=== PATIENT | male | born 1955 | race African-American/Black ===

== ENCOUNTER 2019-09-10 20:34 | Inpatient (IN) | payer MEDICARE, MEDICAID ==
[~2019-09-10] VITALS: Ht 198.1 cm; Wt 87.1 kg
--- NOTE | 2019-09-10 21:45 | NUR ---
PT GIVEN BLANKETS, DENIES ANY FURTHER NEEDS AT THIS TIME. WILL CONTINUE TO MONITOR.
[2019-09-10 22:00] VITALS: BP 179/125
[2019-09-10 22:31] VITALS: BP 161/11
--- NOTE | 2019-09-10 23:17 | NUR ---
RECEIVED PT ON STRETCHER FROM ED RN. PT ALERT AND ORIENTED. PT AMBULATED FROM STRETCHER TO BED WITH MIN ASSISTANCE. NSR ON MONITOR, RATE OF 70'S. L AC PIV SALINE LOCKED, PATENT. R AC PIV PATENT, NITRO GTT INFUSING. ALL PULSES PALP. CALL LIGHT IN REACH. WILL MONITOR.
[2019-09-10 23:20] VITALS: BP 168/120
[2019-09-10 23:30] VITALS: BP 158/117
--- NOTE | 2019-09-10 23:30 | NUR ---
NITRO GTT TITRATED ACCORDING TO MAR.
[2019-09-10 23:45] VITALS: BP 157/115
[2019-09-11] VITALS (38 sets, daily range): BP systolic 116–171; BP diastolic 82–120; Ht 198.1 cm; Wt 87.1 kg
--- NOTE | 2019-09-11 01:45 | NUR ---
DR ANGULO UPDATED, NEW ORDERS RECEIVED.
--- NOTE | 2019-09-11 03:00 | NUR ---
REASSESSMENT COMPLETE, SEE FLOWSHEET.
--- NOTE | 2019-09-11 04:45 | NUR ---
SPOKE WITH DR ANGULO, UPDATE GIVEN AND NEW ORDERS RECEIVED. NEW ORDER TO CHANGE CARDENE DOSE TO 2.5 AND GIVE 0900 HYDRALAZINE EARLY AT 0600. ONCE HYDRALAZINE IS GIVEN TURN CARDENE GTT OFF.
[2019-09-11 05:55] LABS: BASOPHILS 0.3 % (0-2); EOSINOPHILS 2.2 % (0-7); HEMOGLOBIN 10.2 g/dL (13.5-17.5); LYMPHOCYTES 26.6 % (15-50); MCH 28.9 pg (26.0-34.0); MCHC 31.9 g/dL (31.0-37.0); MCV 90.7 fL (80.0-100.0); MEAN PLATELET VOLUME 10.9 fL (7.4-10.4); MONOCYTES 13.3 % (2-11); NEUTROPHILS 57.6 % (40-80); PLATELET COUNT 131 10x3/uL (130-400); RBC 3.53 10x6/uL (4.20-6.10); RDW 14.2 % (11.5-14.5); WBC 3.7 10x3/uL (4.8-10.8)
[2019-09-11 06:14] LABS: APTT 38.8 SECONDS (22.8-39.4); INR 1.39 (0.85-1.17); PROTIME 16.9 SECONDS (11.6-15.0)
[2019-09-11 06:42] LABS: ALBUMIN 3.2 g/dL (3.4-5.0); ALKALINE PHOSPHATASE 65 U/L (46-116); ALT (SGPT) 23 U/L (10-68); BILIRUBIN - TOTAL 0.45 mg/dL (0.2-1.3); CALC OSMOLALITY 293 mosm/kg (275-300); CARBON DIOXIDE 27.2 mmol/L (21.0-32.0); CHLORIDE - SERUM 106 mmol/L (98-107); CKMB 1.2 U/L (0.0-3.6); CREATINE KINASE 92 UL (21-232); CREATININE - SERUM 4.7 mg/dL (0.6-1.3); GLUCOSE 104 mg/dL (74-106); MAGNESIUM - SERUM 2.4 mg/dL (1.8-2.4); PHOSPHOROUS 4.6 mg/dL (2.5-4.9); POTASSIUM - SERUM 4.4 mmol/L (3.5-5.1); PRO BNP 22460 pg/mL (0-125); PROTEIN - SERUM 6.5 g/dL (6.4-8.2); SODIUM 142 mmol/L (136-145); UREA NITROGEN 44 mg/dL (7-18); eGFR NON AFRICAN AMERICAN 13 mL/min (90-120)
[2019-09-11 06:47] LABS: TROPONIN-I 0.074 ng/mL (0.000-0.060)
[2019-09-11 12:34] LABS: CKMB 1.2 U/L (0.0-3.6); CREATINE KINASE 84 UL (21-232); TROPONIN-I 0.054 ng/mL (0.000-0.060)
--- NOTE | 2019-09-11 16:29 | NUR ---
RECEIVED PT FROM ICU. VSS AND WNL. RR EVEN AND UNLABORED ON RA. PT DENIES ANY NEEDS. WILL CTM.
--- NOTE | 2019-09-11 16:58 | NUR ---
TELEPHONE ORDERED 60MG LASIX PO DAILY. ORDER PLACED. WILL CTM.
[2019-09-11 17:50] LABS: CKMB 1.1 U/L (0.0-3.6); CREATINE KINASE 82 UL (21-232); TROPONIN-I 0.056 ng/mL (0.000-0.060)
--- NOTE | 2019-09-11 19:10 | NUR ---
BEDSIDE REPORT RECEIVED FROM DAY SHIFT, PT CARE ASSUMED. INTRODUCED SELF AND WROTE NAME ON BOARD. PT SITTING UP IN BED, AAOX4. DENIES ANY NEEDS AT THIS TIME. BED IN LOWEST POSITION, SR X2, CALL LIGHT WITHIN REACH. WILL CONTINUE TO MONITOR.
--- NOTE | 2019-09-11 19:27 | MORECARE ---
CASE MANAGEMENT DISCHARGE SUMMARY PATIENT: TERESA HAAS UNIT: [id number] ADM DATE: 09/10/19 AGE: 64 : 59 SEX: M ROOM/BED: D.7949 AUTHOR: NARCISO CARDONA PHYSICIAN: REFERRING PHYSICIAN: RAYMOND NIEVES MD DATE OF SERVICE: 09/11/19 Discharge Plan Patient Name: TERESA HAAS Facility: [facility]:[place] : 1955 Planned Disposition: Home with Home Health Anticipated Discharge Date: Discharge Date: Expected LOS: Initial Reviewer: [email or web address] Initial Review Date: 09/10/2019 Generated: 09/11/19 8:26 pm Coverage Notice Reviewer: [id number] Tomás Guzmán Notice Issued Date-Time: 09/11/2019 13:45 Notice Type: Patient Choice Letter Notice Delivered To: Patient Relationship to Patient: Self Recycling Attendant Name: Delivery Method: - Rama Days: Prior Verbal Notification: Recipient Understood Notice: Recipient Signature: Med Rec Note Co-signed by Attending: Coverage Notice Comment: Patient Name: TERESA HAAS Page 14002 at 1927 All edits/amendments must be made on the electronic document DICTATION DATE: 09/11/191925 DELIVERY SALES WORKER: GLORIA 09/11/191925 RPT#: [id number] DC DATE: STATUS: ADM IN [place] [address] [place] [address] END OF REPORT
--- NOTE | 2019-09-11 19:34 | MORECARE ---
CASE MANAGEMENT DISCHARGE SUMMARY PATIENT: TERESA HAAS UNIT: [id number] ADM DATE: 09/10/19 AGE: 64 : 59 SEX: M ROOM/BED: D.9889 AUTHOR: NARCISO CARDONA PHYSICIAN: REFERRING PHYSICIAN: RAYMOND NIEVES MD DATE OF SERVICE: 09/11/19 Discharge Plan Patient Name: TERESA HAAS Facility: [facility]:[place] : 1955 Planned Disposition: Home with Home Health Anticipated Discharge Date: Discharge Date: Expected LOS: Initial Reviewer: [email or web address] Initial Review Date: 09/10/2019 Generated: 09/11/19 8:34 pm DCPIA - Discharge Planning Initial Assessment Updated by [email or web address]: Rylie Guzmán on 09/11/19 7:29 pm * Is the patient Alert and Oriented? Yes * How many steps to enter\exit or inside your home? * PCP KELLIE * [facility] * Preadmission Environment Home with Family * ADLs Independent * Other Equipment WALKER, CRUTCHES, WALKING STICK * List name and contact numbers for known caregivers / representatives who currently or will assist patient after discharge: YSABEL GRANT - [facility]- [phone] * Verbal permission to speak to the caregivers and representatives has been obtained from the patient. Yes * Community resources currently utilized None * Additional services required to return to the preadmission environment? No * Can the patient safely return to the preadmission environment? Yes * Has this patient been hospitalized within the prior 30 days at any hospital? No Coverage Notice Reviewer: [id number] - Rylie Guzmán Notice Issued Date-Time: 09/11/2019 13:45 Notice Type: Patient Choice Letter Notice Delivered To: Patient Relationship to Patient: Self Cyber Security Administrator Name: Delivery Method: HAND - Hand Delivered Rama Days: Prior Verbal Notification: Recipient Understood Notice: Yes Recipient Signature: Yes Med Rec Note Co-signed by Attending: Coverage Notice Comment: Last DP export: 09/11/19 6:27 p Patient Name: TERESA HAAS Page 47463 at 1934 All edits/amendments must be made on the electronic document DICTATION DATE: 09/11/191933 CLAIMS TECHNICIAN: GLORIA 09/11/191933 RPT#: [id number] DC DATE: STATUS: ADM IN [facility] [address] [place] [address] END OF REPORT
--- NOTE | 2019-09-11 19:49 | MORECARE ---
CASE MANAGEMENT DISCHARGE SUMMARY PATIENT: TERESA HAAS UNIT: [id number] ADM DATE: 09/10/19 AGE: 64 : 59 SEX: M ROOM/BED: D.7528 AUTHOR: DULCE,DOC PHYSICIAN: REFERRING PHYSICIAN: RAYMOND NIEVES MD DATE OF SERVICE: 09/11/19 Discharge Plan Patient Name: TERESA HAAS Facility: [facility]:[place] : 1955 Planned Disposition: Home with Home Health Anticipated Discharge Date: Discharge Date: Expected LOS: Initial Reviewer: [id number] Initial Review Date: 09/10/2019 Generated: 09/11/19 8:49 pm Comments DCP- Discharge Planning Updated by [id number]: Rylie Guzmán on 09/11/19 6:[address] Patient Name: TERESA HAAS Admission Status: ER Accout number: [id number] Admission Date: 09-10-2019 : 1955 Admission Diagnosis: Attending: RAYMOND NIEVES Current LOS: 1 Anticipated DC Date: Planned Disposition: Home with Home Health Primary Insurance: [facility] MEDICARE SOLUTIONS Discharge Planning Comments: CM met with patient at bedside after explaining CM role and obtaining verbal consent. Patient lives [place] [address] where he is independent with his care and plans to return there upon discharge. Patient feels this would be a safe discharge. CM discussed availability / needs of home health and medical equipment. Patient would like Home health when discharged KATE signed for [facility] . Patient also would like to check about meals on wheels. Patient states he will have his family drive him home upon discharge. CM will continue to follow and assist as needed with discharge planning / needs. Fiscal Manager: Rylie Guzmán DCPIA - Discharge Planning Initial Assessment Updated by [email or web address]: Rylie Guzmán on 09/11/19 7:29 pm * Is the patient Alert and Oriented? Yes * How many steps to enter\exit or inside your home? * PCP KELLIE * [facility] * Preadmission Environment Home with Family * ADLs Independent * Other Equipment WALKER, CRUTCHES, WALKING STICK * List name and contact numbers for known caregivers / representatives who currently or will assist patient after discharge: YSABEL GRANT - [facility]- [phone] * Verbal permission to speak to the caregivers and representatives has been obtained from the patient. Yes * Community resources currently utilized None * Additional services required to return to the preadmission environment? No * Can the patient safely return to the preadmission environment? Yes * Has this patient been hospitalized within the prior 30 days at any hospital? No Coverage Notice Reviewer: [id number] Tomás Guzmán Notice Issued Date-Time: 09/11/2019 13:45 Notice Type: Patient Choice Letter Notice Delivered To: Patient Relationship to Patient: Self Field Technical Specialist Name: Delivery Method: HAND - Hand Delivered Rama Days: Prior Verbal Notification: Recipient Understood Notice: Yes Recipient Signature: Yes Med Rec Note Co-signed by Attending: Coverage Notice Comment: Last DP export: 09/11/19 6:34 p Patient Name: TERESA HAAS Page 38318 at 1949 All edits/amendments must be made on the electronic document DICTATION DATE: 09/11/191948 FSR: GLORIA 09/11/191948 RPT#: [id number] DC DATE: STATUS: ADM IN [facility] [address] [place] [address] END OF REPORT
[2019-09-12 01:00] VITALS: BP 130/86
[2019-09-12 05:43] VITALS: BP 138/93
[2019-09-12] MEDS ORDERED: COUMADIN5 MG PO (06:14)
[2019-09-12 06:15] LABS: BASOPHILS 0.5 % (0-2); HEMATOCRIT 30.7 % (42.0-54.0); HEMOGLOBIN 9.9 g/dL (13.5-17.5); LYMPHOCYTES 37.6 % (15-50); MCH 29.4 pg (26.0-34.0); MCHC 32.2 g/dL (31.0-37.0); MCV 91.1 fL (80.0-100.0); MEAN PLATELET VOLUME 10.2 fL (7.4-10.4); MONOCYTES 9.9 % (2-11); RBC 3.37 10x6/uL (4.20-6.10); RDW 14.1 % (11.5-14.5); WBC 3.8 10x3/uL (4.8-10.8)
[2019-09-12] MEDS ORDERED: PROCARDIA XL PO (06:15)
[2019-09-12] MEDS ORDERED: HYDRALAZINE HCL50 MG PO (06:15)
[2019-09-12 06:16] LABS: PLATELET COUNT 174 10x3/uL (130-400)
[2019-09-12] MEDS ORDERED: FUROSEMIDE20 MG PO (06:16)
[2019-09-12] MEDS ORDERED: COREG6.25 MG PO (06:16)
[2019-09-12 06:29] LABS: ANION GAP 10.9 mmol/L (8-16); CALCIUM 7.9 mg/dL (8.5-10.1); CARBON DIOXIDE 27.3 mmol/L (21.0-32.0); CREATININE - SERUM 4.8 mg/dL (0.6-1.3); MAGNESIUM - SERUM 2.4 mg/dL (1.8-2.4); PHOSPHOROUS 4.1 mg/dL (2.5-4.9); POTASSIUM - SERUM 4.2 mmol/L (3.5-5.1)
--- NOTE | 2019-09-12 07:56 | NUR ---
REPORT RECEIVED. WILL CONTINUE WITH POC. PT CURRENTLY LYING SEMI FOWLERS. CALL LIGHT W/I REACH. PT IS AAO AND UP WITH ASSIST. RR EVEN AND UNLABORED ON RA. L.AND R. AC PIV'S ARE SALINE LOCKED. NO S/S OF DISTRESS NOTED. PT DENIES ANY NEEDS. WILL CTM.
[2019-09-12 08:00] VITALS: BP 140/94
--- NOTE | 2019-09-12 10:50 | NUR ---
I have reviewed this patient and I concur with the Shift Assessment completed by the Licensed Practical Nurse today this shift.
[2019-09-12 12:00] VITALS: BP 124/85
--- NOTE | 2019-09-12 12:56 | MORECARE ---
CASE MANAGEMENT DISCHARGE SUMMARY PATIENT: TERESA HAAS UNIT: [id number] ADM DATE: 09/10/19 AGE: 64 : 59 SEX: M ROOM/BED: D.4990 AUTHOR: DULCE,DOC PHYSICIAN: REFERRING PHYSICIAN: RAYMOND NIEVES MD DATE OF SERVICE: 09/12/19 Discharge Plan Patient Name: TERESA HAAS Facility: [facility]:[place] : 1955 Planned Disposition: Home with Home Health Anticipated Discharge Date: 09/12/19 Discharge Date: Expected LOS: 2 Initial Reviewer: [email or web address] Initial Review Date: 09/10/2019 Generated: 09/12/19 1:56 pm Comments DCP- Discharge Planning Updated by [email or web address]: Rylie Guzmán on 09/11/19 6:[address] Patient Name: TERESA HAAS Admission Status: ER Accout number: [id number] Admission Date: 09-10-2019 : 1955 Admission Diagnosis: Attending: RAYMOND NIEVES Current LOS: 1 Anticipated DC Date: Planned Disposition: Home with Home Health Primary Insurance: [facility] MEDICARE SOLUTIONS Discharge Planning Comments: CM met with patient at bedside after explaining CM role and obtaining verbal consent. Patient lives [place] [address] where he is independent with his care and plans to return there upon discharge. Patient feels this would be a safe discharge. CM discussed availability / needs of home health and medical equipment. Patient would like Home health when discharged KATE signed for [facility] . Patient also would like to check about meals on wheels. Patient states he will have his family drive him home upon discharge. CM will continue to follow and assist as needed with discharge planning / needs. Lead Fire Protection Engineer: Rylie Guzmán DCPIA - Discharge Planning Initial Assessment Updated by [id number]: Rylie Guzmán on 09/11/19 7:29 pm * Is the patient Alert and Oriented? Yes * How many steps to enter\exit or inside your home? * PCP KELLIE * [facility] * Preadmission Environment Home with Family * ADLs Independent * Other Equipment WALKER, CRUTCHES, WALKING STICK * List name and contact numbers for known caregivers / representatives who currently or will assist patient after discharge: YSABEL GRANT - DAUGHTER- [phone] * Verbal permission to speak to the caregivers and representatives has been obtained from the patient. Yes * Community resources currently utilized None * Additional services required to return to the preadmission environment? No * Can the patient safely return to the preadmission environment? Yes * Has this patient been hospitalized within the prior 30 days at any hospital? No External Providers External Provider: [facility] Next Contact Date: 09/12/2019 Service Request Date: Service Type: Resolution: Reviewer: Comments: Coverage Notice Reviewer: [id number] - Rylie Guzmán Notice Issued Date-Time: 09/11/2019 13:45 Notice Type: Patient Choice Letter Notice Delivered To: Patient Relationship to Patient: Self Customer Acquisition Manager Name: Delivery Method: HAND - Hand Delivered Rama Days: Prior Verbal Notification: Recipient Understood Notice: Yes Recipient Signature: Yes Med Rec Note Co-signed by Attending: Coverage Notice Comment: Last DP export: 09/11/19 6:49 p Patient Name: TERESA HAAS Page 79570 at 1256 All edits/amendments must be made on the electronic document DICTATION DATE: 09/12/19 125 PROJECT DEVELOPMENT DIRECTOR: GLORIA 09/12/19 1256 RPT#: [id number] DC DATE: STATUS: ADM IN [facility] [address] [place] [address] END OF REPORT
--- NOTE | 2019-09-12 14:15 | NUR ---
THERE IS NO WRITTEN SCRIPT FOR NORCO IN PATIENT CHART OR WITH PATIENT. I CALLED DR ANGULO TO LET HER BE AWARE OF THIS. SHE STATES THAT SHE SIGNED ONE AND GAVE TO NURSE THIS AM. I TOLD HER THAT ONLY THING IN CHART IS SIGNED PROCARDIA. AWAITING CALL BACK.
--- NOTE | 2019-09-12 14:36 | NUR ---
DR ANGULO TO CALL BACK AND STATE THAT DR PEREIRA WILL COME BY AND WRITE SCRIPT AGAIN FOR [place]. I ASKED HER TO PLEASE TELL HIM TO HAND IT TO ME (IF I AM STILL HERE AT 5 PM).
--- NOTE | 2019-09-12 14:55 | MORECARE ---
CASE MANAGEMENT DISCHARGE SUMMARY PATIENT: TERESA HAAS UNIT: [id number] ADM DATE: 09/10/19 AGE: 64 : 59 SEX: M ROOM/BED: D.0541 AUTHOR: DULCE,DOC PHYSICIAN: REFERRING PHYSICIAN: RAYMOND NIEVES MD DATE OF SERVICE: 09/12/19 Discharge Plan Patient Name: TERESA HAAS Facility: [facility]:[place] : 1955 Planned Disposition: Home with Home Health Anticipated Discharge Date: 09/12/19 Discharge Date: Expected LOS: 2 Initial Reviewer: [id number] Initial Review Date: 09/10/2019 Generated: 09/12/19 3:55 pm Comments DCP- Discharge Planning Updated by [id number]: Rylie Guzmán on 09/11/19 6:[address] Patient Name: TERESA HAAS Admission Status: ER Accout number: [id number] Admission Date: 09-10-2019 : 1955 Admission Diagnosis: Attending: RAYMOND NIEVES Current LOS: 1 Anticipated DC Date: Planned Disposition: Home with Home Health Primary Insurance: [facility] MEDICARE SOLUTIONS Discharge Planning Comments: CM met with patient at bedside after explaining CM role and obtaining verbal consent. Patient lives [place] [address] where he is independent with his care and plans to return there upon discharge. Patient feels this would be a safe discharge. CM discussed availability / needs of home health and medical equipment. Patient would like Home health when discharged KATE signed for [facility] . Patient also would like to check about meals on wheels. Patient states he will have his family drive him home upon discharge. CM will continue to follow and assist as needed with discharge planning / needs. Nozzle Worker: Rylie Guzmán DCPIA - Discharge Planning Initial Assessment Updated by [id number]: Rylie Guzmán on 09/11/19 7:29 pm * Is the patient Alert and Oriented? Yes * How many steps to enter\exit or inside your home? * PCP KELLIE * [facility] * Preadmission Environment Home with Family * ADLs Independent * Other Equipment WALKER, CRUTCHES, WALKING STICK * List name and contact numbers for known caregivers / representatives who currently or will assist patient after discharge: YSABEL GRANT - DAUGHTER- [phone] * Verbal permission to speak to the caregivers and representatives has been obtained from the patient. Yes * Community resources currently utilized None * Additional services required to return to the preadmission environment? No * Can the patient safely return to the preadmission environment? Yes * Has this patient been hospitalized within the prior 30 days at any hospital? No Coverage Notice Reviewer: [id number] Tomás Guzmán Notice Issued Date-Time: 09/11/2019 13:45 Notice Type: Patient Choice Letter Notice Delivered To: Patient Relationship to Patient: Self Multimedia Artist Name: Delivery Method: HAND - Hand Delivered Rama Days: Prior Verbal Notification: Recipient Understood Notice: Yes Recipient Signature: Yes Med Rec Note Co-signed by Attending: Coverage Notice Comment: Last DP export: 09/12/19 11:56 a Patient Name: TERESA HAAS Page 68640 at 1455 All edits/amendments must be made on the electronic document DICTATION DATE: 09/12/19 1455 CATTYMAN: GLORIA 09/12/19 1455 RPT#: [id number] DC DATE: STATUS: ADM IN [facility] [address] [place] [address] END OF REPORT
--- NOTE | 2019-09-12 15:44 | MORECARE ---
CASE MANAGEMENT DISCHARGE SUMMARY PATIENT: TERESA HAAS UNIT: [id number] ADM DATE: 09/10/19 AGE: 64 : 59 SEX: M ROOM/BED: D.3188 AUTHOR: DULCE,DOC PHYSICIAN: REFERRING PHYSICIAN: RAYMOND NIEVES MD DATE OF SERVICE: 09/12/19 Discharge Plan Patient Name: TERESA HAAS Facility: [facility]:[place] : 1955 Planned Disposition: Home with Home Health Anticipated Discharge Date: 09/12/19 Discharge Date: Expected LOS: 2 Initial Reviewer: [id number] Initial Review Date: 09/10/2019 Generated: 09/12/19 4:43 pm Comments DCP- Discharge Planning Updated by [email or web address]: Nguyễn Carrasco on 09/12/19 2:[address] Patient Name: TERESA HAAS Encounter No: [id number] : 1955 Primary Insurance: [facility] MEDICARE SOLUTIONS Anticipated DC Date: 09-12-2019 Planned Disposition: Home with Home Health External Planned Provider: [facility] DCP follow-up note: FATIMAH SPOKE TO REGARDING PT'S NEED TO FILL HYPERTENSIVE MEDICATIONS. FATIMAH DISCUSSED HOME HEALTH AVAILABILITY AND PT'S WILLINGNESS FOR THE SERVICE, IN AGREEMENT WITH NEED OF HOME HEALTH. HOME HEALTH ORDER OBTAINED. FATIMAH SPOKE TO PT WHO INFORMED CM THAT HIS FAMILY CANNOT PICK HIM UP UNTIL TOMORROW. CM REVIEWED CHART, PT HAS MEDICAID. PT HAS NEVER USED MEDICAID TRANSPORTATION BUT IS WILLING FOR MEDICAID TRANSPORT IF IT WILL SAVE THEM MONEY ON TRANSPORTATION. CM CALLED MEDICAID TRANSPORATATION, PT IS NOT ELIGIBLE FOR MEDICAID TRANSPORT HE HAS ONLY "[place]" MEDICAID. CM DISCUSSED WITH PT WHO HAS NO OTHER WAY HOME OTHER THEN TO WAIT ON FAMILY FOR TOMORROW. PT DOES NOT QUALIFY FOR [facility] TRANSPORT HE IS UP INDEPENDENTLY IN ROOM WITH NO MEDICAL TRANSPORT NEEDS. CM DISCUSSED WITH DIRECTOR MARY OF CASE MANAGEMENT WHO APPROVED [facility] SERVICE TO GET PT HOME TODAY. FATIMAH SPOKE TO PT WHO IS IN AGREEMENT WITH TRANSPORT PLAN AND FEELS WELL TO GO HOME. PT REPORTS HAVING THORNE TO GET INTO HOUSE AND HE WILL NOTIFY HIS FAMILY. CM PROVIDED AND DISCUSSED MEALS ON WHEELS INFORMATION PROVIDED BY RN FATIMAH GUZMÁN. CM PROVIDED AND DISCUSSED IMPORTANT MESSAGE FROM MEDICARE. PT REPORTS HAVING INSURANCE TO ASSIST IN PAYING FOR MEDICATION, HAS COPAY'S BUT CAN AFFORD ALL OF HIS MEDICATIONS. PT'S DAUGHTER PICKS THEM UP FROM PHARMACY FOR HIM. PT DENIES FURHTER NEEDS. CM SPOKE TO BEDSIDE NURSE WHO INFORMED CM THAT PT'S BLOOD PRESSURE WAS WITHIN NORMAL LIMITS. CM CALLED [facility], , APPROVED [facility] COMPOSITION FLOOR SETTER FOR TRANSPORT HOME TODAY TO [address] [place] [address] [place], COSTS TO CASE MANAGEMENT OF $235.00. CM NOTIFIED SENIOR ELECTRICAL DESIGN ENGINEER NURSE. CM CALLED [facility] IN [place], , PROVIDED REFERRAL TO [facility] WHO TOOK REFERRAL AND PLACED PT ON SCHEDULE FOR ADMIT ON SUNDAY. CM NOTIFED PT WHO IS IN AGREEMENT WITH PLAN. CM FAXED REFERRAL AND DISCHARGE INFORMATION TO [facility] IN [place] AT [phone]. NURSE TO CALL [facility] AT [phone] WHEN PT HAS BEEN DISCHARGED AND IS READY TO BE WHEELED DOWNSTAIRS. THE [facility] HAS BEEN APPROVED BY CM DIRECTOR MARY AND ARRANGED BY FATIMAH CARRASCO. Nguyễn Carrasco, CASE MANAGEMENT DCP- Discharge Planning Updated by [id number]: Rylie Guzmán on 09/11/19 6:[address] Patient Name: TERESA HAAS Admission Status: ER Accout number: [id number] Admission Date: 09-10-2019 : 1955 Admission Diagnosis: Attending: RAYMOND NIEVES Current LOS: 1 Anticipated DC Date: Planned Disposition: Home with Home Health Primary Insurance: [facility] MEDICARE SOLUTIONS Discharge Planning Comments: CM met with patient at bedside after explaining CM role and obtaining verbal consent. Patient lives at home with his son [place] [address] where he is independent with his care and plans to return there upon discharge. Patient feels this would be a safe discharge. CM discussed availability / needs of home health and medical equipment. Patient would like Home health when discharged KATE signed for [facility]. Patient also would like to check about meals on wheels. Patient states he will have his family drive him home upon discharge. CM will continue to follow and assist as needed with discharge planning / needs. Rental Clerk Tool And Equipment: Rylie Guzmán DCPIA - Discharge Planning Initial Assessment Updated by [email or web address]: Rylie Guzmán on 09/11/19 7:29 pm * Is the patient Alert and Oriented? Yes * How many steps to enter\\exit or inside your home? * PCP KELLIE * [facility] * Preadmission Environment Home with Family * ADLs Independent * Other Equipment WALKER, CRUTCHES, WALKING STICK * List name and contact numbers for known caregivers / representatives who currently or will assist patient after discharge: YSABEL GRANT - DAUGHTER- [phone] * Verbal permission to speak to the caregivers and representatives has been obtained from the patient. Yes * Community resources currently utilized None * Additional services required to return to the preadmission environment? No * Can the patient safely return to the preadmission environment? Yes * Has this patient been hospitalized within the prior 30 days at any hospital? No Coverage Notice Reviewer: [id number] - Rylie Guzmán Notice Issued Date-Time: 09/11/2019 13:45 Notice Type: Patient Choice Letter Notice Delivered To: Patient Relationship to Patient: Self Planning Specialist Name: Delivery Method: HAND - Hand Delivered Rama Days: Prior Verbal Notification: Recipient Understood Notice: Yes Recipient Signature: Yes Med Rec Note Co-signed by Attending: Coverage Notice Comment: Reviewer: [email or web address] - Nguyễn Carrasco Notice Issued Date-Time: 09/12/2019 10:25 Notice Type: IM Discharge Notice Notice Delivered To: Patient Relationship to Patient: Planning Specialist Name: Delivery Method: HAND - Hand Delivered Rama Days: Prior Verbal Notification: Recipient Understood Notice: Yes Recipient Signature: Yes Med Rec Note Co-signed by Attending: Coverage Notice Comment: Last DP export: 09/12/19 1:55 p Patient Name: TERESA HAAS Page 78937 at 1544 All edits/amendments must be made on the electronic document DICTATION DATE: 09/12/191542 NARROW GAUGE BRAKEMAN: GLORIA 09/12/19 154 RPT#: [id number] DC DATE: STATUS: ADM IN [facility] [address] [place] [address] END OF REPORT
--- NOTE | 2019-09-12 15:54 | MORECARE ---
CASE MANAGEMENT DISCHARGE SUMMARY PATIENT: TERESA HAAS UNIT: [id number] ADM DATE: 09/10/19 AGE: 64 : 59 SEX: M ROOM/BED: D.2932 AUTHOR: DULCE,DOC PHYSICIAN: REFERRING PHYSICIAN: RAYMOND NIEVES MD DATE OF SERVICE: 09/12/19 Discharge Plan Patient Name: TERESA HAAS Facility: [facility]:[place] : 1955 Planned Disposition: Home with Home Health Anticipated Discharge Date: 09/12/19 Discharge Date: Expected LOS: 2 Initial Reviewer: [id number] Initial Review Date: 09/10/2019 Generated: 09/12/19 4:53 pm Comments DCP- Discharge Planning Updated by [id number]: Rylie Guzmán on 09/12/19 2:[address] CM gave information on meals on wheels for [facility] for patient to be able to follow up with, CM will continue to follow and assist as needed with discharge planning / needs DCP- Discharge Planning Updated by [email or web address]: Nguyễn Carrasco on 09/12/19 2:[address] Patient Name: TERESA HAAS Encounter No: [id number] : 1955 Primary Insurance: [facility] MEDICARE SOLUTIONS Anticipated DC Date: 09-12-2019 Planned Disposition: Home with Home Health External Planned Provider: [facility] [place] OFFICE DCP follow-up note: FATIMAH SPOKE TO REGARDING PT'S NEED TO FILL HYPERTENSIVE MEDICATIONS. FATIMAH DISCUSSED HOME HEALTH AVAILABILITY AND PT'S WILLINGNESS FOR THE SERVICE, IN AGREEMENT WITH NEED OF HOME HEALTH. HOME HEALTH ORDER OBTAINED. FATIMAH SPOKE TO PT WHO INFORMED CM THAT HIS FAMILY CANNOT PICK HIM UP UNTIL TOMORROW. CM REVIEWED CHART, PT HAS MEDICAID. PT HAS NEVER USED MEDICAID TRANSPORTATION BUT IS WILLING FOR MEDICAID TRANSPORT IF IT WILL SAVE THEM MONEY ON TRANSPORTATION. CM CALLED MEDICAID TRANSPORATATION, PT IS NOT ELIGIBLE FOR MEDICAID TRANSPORT HE HAS ONLY "QMB" MEDICAID. FATIMAH DISCUSSED WITH PT WHO HAS NO OTHER WAY HOME OTHER THEN TO WAIT ON FAMILY FOR TOMORROW. PT DOES NOT QUALIFY FOR AMBUANCE TRANSPORT HE IS UP INDEPENDENTLY IN ROOM WITH NO MEDICAL TRANSPORT NEEDS. CM DISCUSSED WITH DIRECTOR MARY OF CASE MANAGEMENT WHO APPROVED TAXI SERVICE TO GET PT HOME TODAY. CM SPOKE TO PT WHO IS IN AGREEMENT WITH TRANSPORT PLAN AND FEELS WELL TO GO HOME. PT REPORTS HAVING THORNE TO GET INTO HOUSE AND HE WILL NOTIFY HIS FAMILY. CM PROVIDED AND DISCUSSED MEALS ON WHEELS INFORMATION PROVIDED BY RN FATIMAH GUZMÁN. CM PROVIDED AND DISCUSSED IMPORTANT MESSAGE FROM MEDICARE. PT REPORTS HAVING INSURANCE TO ASSIST IN PAYING FOR MEDICATION, HAS COPAY'S BUT CAN AFFORD ALL OF HIS MEDICATIONS. PT'S DAUGHTER PICKS THEM UP FROM PHARMACY FOR HIM. PT DENIES FURHTER NEEDS. CM SPOKE TO BEDSIDE NURSE WHO INFORMED CM THAT PT'S BLOOD PRESSURE WAS WITHIN NORMAL LIMITS. CM CALLED [employer] [facility], , APPROVED [facility]I SHOTBLAST OPERATOR FOR TRANSPORT HOME TODAY TO [address] [place] [address] IN [place], COSTS TO CASE MANAGEMENT OF $235.00. CM NOTIFIED HONING MACHINE OPERATOR NURSE. CM CALLED [facility] IN [place], , PROVIDED REFERRAL TO [facility] WHO TOOK REFERRAL AND PLACED PT ON SCHEDULE FOR ADMIT ON SUNDAY. CM NOTIFED PT WHO IS IN AGREEMENT WITH PLAN. CM FAXED REFERRAL AND DISCHARGE INFORMATION TO [facility] IN [place] AT [phone]. NURSE TO CALL [employer] [facility] AT [phone] WHEN PT HAS BEEN DISCHARGED AND IS READY TO BE WHEELED DOWNSTAIRS. THE TAXI HAS BEEN APPROVED BY CM DIRECTOR MARY AND ARRANGED BY FATIMAH CARRASCO. Nguyễn Carrasco, CASE MANAGEMENT DCP- Discharge Planning Updated by [id number]: Rylie Ramirez on 09/11/19 6:[address] Patient Name: TERESA HAAS Admission Status: ER Accout number: [id number] Admission Date: 09-10-2019 : 1955 Admission Diagnosis: Attending: RAYMOND NIEVES Current LOS: 1 Anticipated DC Date: Planned Disposition: Home with Home Health Primary Insurance: [facility] MEDICARE SOLUTIONS Discharge Planning Comments: CM met with patient at bedside after explaining CM role and obtaining verbal consent. Patient lives at home with his son [address] [place] [address], [place] [address] where he is independent with his care and plans to return there upon discharge. Patient feels this would be a safe discharge. CM discussed availability / needs of home health and medical equipment. Patient would like Home health when discharged KATE signed for [facility]. Patient also would like to check about meals on wheels. Patient states he will have his family drive him home upon discharge. CM will continue to follow and assist as needed with discharge planning / needs. Patch Sander: Rylie BENNETTA - Discharge Planning Initial Assessment Updated by [email or web address]: Rylie Guzmán on 09/11/19 7:29 pm * Is the patient Alert and Oriented? Yes * How many steps to enter\\exit or inside your home? * PCP KELLIE * [facility] * Preadmission Environment Home with Family * ADLs Independent * Other Equipment WALKER, CRUTCHES, WALKING STICK * List name and contact numbers for known caregivers / representatives who currently or will assist patient after discharge: YSABEL GRANT - DAUGHTER- [phone] * Verbal permission to speak to the caregivers and representatives has been obtained from the patient. Yes * Community resources currently utilized None * Additional services required to return to the preadmission environment? No * Can the patient safely return to the preadmission environment? Yes * Has this patient been hospitalized within the prior 30 days at any hospital? No Coverage Notice Reviewer: [id number] - Rylie Ramirez Notice Issued Date-Time: 09/11/2019 13:45 Notice Type: Patient Choice Letter Notice Delivered To: Patient Relationship to Patient: Self Fuel Retrofitting Technician Name: Delivery Method: HAND - Hand Delivered Rama Days: Prior Verbal Notification: Recipient Understood Notice: Yes Recipient Signature: Yes Med Rec Note Co-signed by Attending: Coverage Notice Comment: Reviewer: [id number] - Nguyễn Carrasco Notice Issued Date-Time: 09/12/2019 10:25 Notice Type: IM Discharge Notice Notice Delivered To: Patient Relationship to Patient: Fuel Retrofitting Technician Name: Delivery Method: HAND - Hand Delivered Rama Days: Prior Verbal Notification: Recipient Understood Notice: Yes Recipient Signature: Yes Med Rec Note Co-signed by Attending: Coverage Notice Comment: Last DP export: 09/12/19 2:44 p Patient Name: TERESA HAAS Page 59063 at 1554 All edits/amendments must be made on the electronic document DICTATION DATE: 09/12/19 7308 RISK AND INSURANCE CONSULTANT: GLORIA 09/12/19 7886 RPT#: [id number] [place] DATE: STATUS: ADM IN [facility] [address] [place] [address] END OF REPORT
--- NOTE | 2019-09-12 16:25 | NUR ---
STILL AWAITING DR PEREIRA OR DR ANGULO TO BRING WRITTEN SCRIPT FOR [place].
--- NOTE | 2019-09-12 17:00 | NUR ---
WRITTEN SCRIPT FOR [place] 5/325 MG # 30 GIVEN TO ME FOR CHART AND COPIED FROM DR PEREIRA.
[2019-09-12] MEDS ORDERED: HYDROCODON-ACE1 EAC7 PO (17:01)
--- NOTE | 2019-09-12 17:29 | MORECARE ---
CASE MANAGEMENT DISCHARGE SUMMARY PATIENT: TERESA HAAS UNIT: [id number] ADM DATE: 09/10/19 AGE: 64 : 59 SEX: M ROOM/BED: D.4826 AUTHOR: DULCE,DOC PHYSICIAN: REFERRING PHYSICIAN: RAYMOND NIEVES MD DATE OF SERVICE: 09/12/19 Discharge Plan Patient Name: TERESA HAAS Facility: [facility]:[place] : 1955 Planned Disposition: Home with Home Health Anticipated Discharge Date: 09/12/19 Discharge Date: Expected LOS: 2 Initial Reviewer: [email or web address] Initial Review Date: 09/10/2019 Generated: 09/12/19 6:28 pm Comments DCP- Discharge Planning Updated by [id number]: Rylie Guzmán on 09/12/19 2:[address] CM gave information on meals on wheels for [employer] for patient to be able to follow up with, CM will continue to follow and assist as needed with discharge planning / needs DCP- Discharge Planning Updated by [email or web address]: Nguyễn Carrasco on 09/12/19 2:[address] Patient Name: TERESA HAAS Encounter No: [id number] : 1955 Primary Insurance: [facility] MEDICARE SOLUTIONS Anticipated DC Date: 09-12-2019 Planned Disposition: Home with Home Health External Planned Provider: [facility] [place] OFFICE DCP follow-up note: FATIMAH SPOKE TO REGARDING PT'S NEED TO FILL HYPERTENSIVE MEDICATIONS. FATIMAH DISCUSSED HOME HEALTH AVAILABILITY AND PT'S WILLINGNESS FOR THE SERVICE, IN AGREEMENT WITH NEED OF HOME HEALTH. HOME HEALTH ORDER OBTAINED. FATIMAH SPOKE TO PT WHO INFORMED CM THAT HIS FAMILY CANNOT PICK HIM UP UNTIL TOMORROW. CM REVIEWED CHART, PT HAS MEDICAID. PT HAS NEVER USED MEDICAID TRANSPORTATION BUT IS WILLING FOR MEDICAID TRANSPORT IF IT WILL SAVE THEM MONEY ON TRANSPORTATION. CM CALLED MEDICAID TRANSPORATATION, PT IS NOT ELIGIBLE FOR MEDICAID TRANSPORT HE HAS ONLY "QMB" MEDICAID. FATIMAH DISCUSSED WITH PT WHO HAS NO OTHER WAY HOME OTHER THEN TO WAIT ON FAMILY FOR TOMORROW. PT DOES NOT QUALIFY FOR AMBUANCE TRANSPORT HE IS UP INDEPENDENTLY IN ROOM WITH NO MEDICAL TRANSPORT NEEDS. CM DISCUSSED WITH DIRECTOR MARY OF CASE MANAGEMENT WHO APPROVED [facility] SERVICE TO GET PT HOME TODAY. CM SPOKE TO PT WHO IS IN AGREEMENT WITH TRANSPORT PLAN AND FEELS WELL TO GO HOME. PT REPORTS HAVING THORNE TO GET INTO HOUSE AND HE WILL NOTIFY HIS FAMILY. CM PROVIDED AND DISCUSSED MEALS ON WHEELS INFORMATION PROVIDED BY RN FATIMAH GUZMÁN. CM PROVIDED AND DISCUSSED IMPORTANT MESSAGE FROM MEDICARE. PT REPORTS HAVING INSURANCE TO ASSIST IN PAYING FOR MEDICATION, HAS COPAY'S BUT CAN AFFORD ALL OF HIS MEDICATIONS. PT'S DAUGHTER PICKS THEM UP FROM PHARMACY FOR HIM. PT DENIES FURHTER NEEDS. CM SPOKE TO BEDSIDE NURSE WHO INFORMED CM THAT PT'S BLOOD PRESSURE WAS WITHIN NORMAL LIMITS. CM CALLED [employer], , APPROVED TAXI RELINER FOR TRANSPORT HOME TODAY TO [address] [place] [address] IN [place], COSTS TO CASE MANAGEMENT OF $235.00. CM NOTIFIED STRAIN TECHNICIAN NURSE. CM CALLED [facility] IN [place], , PROVIDED REFERRAL TO [facility] WHO TOOK REFERRAL AND PLACED PT ON SCHEDULE FOR ADMIT ON SUNDAY. CM NOTIFED PT WHO IS IN AGREEMENT WITH PLAN. CM FAXED REFERRAL AND DISCHARGE INFORMATION TO [facility] IN [place] AT [phone]. NURSE TO CALL [facility] AT [phone] WHEN PT HAS BEEN DISCHARGED AND IS READY TO BE WHEELED DOWNSTAIRS. THE TAXI HAS BEEN APPROVED BY CM DIRECTOR MARY AND ARRANGED BY FATIMAH CARRASCO. Nguyễn Carrasco, CASE MANAGEMENT DCP- Discharge Planning Updated by [id number]: Rylie Ramirez on 09/11/19 6:[address] Patient Name: TERESA HAAS Admission Status: ER Accout number: [id number] Admission Date: 09-10-2019 : 1955 Admission Diagnosis: Attending: RAYMOND NIEVES Current LOS: 1 Anticipated DC Date: Planned Disposition: Home with Home Health Primary Insurance: [facility] MEDICARE SOLUTIONS Discharge Planning Comments: CM met with patient at bedside after explaining CM role and obtaining verbal consent. Patient lives at home with his son [address] [place] [address], [place] [address] where he is independent with his care and plans to return there upon discharge. Patient feels this would be a safe discharge. CM discussed availability / needs of home health and medical equipment. Patient would like Home health when discharged KATE signed for [facility]. Patient also would like to check about meals on wheels. Patient states he will have his family drive him home upon discharge. CM will continue to follow and assist as needed with discharge planning / needs. Director Trading: Rylie BENNETTA - Discharge Planning Initial Assessment Updated by [id number]: Rylie Guzmán on 09/11/19 7:29 pm * Is the patient Alert and Oriented? Yes * How many steps to enter\\exit or inside your home? * PCP KELLIE * [facility] * Preadmission Environment Home with Family * ADLs Independent * Other Equipment WALKER, CRUTCHES, WALKING STICK * List name and contact numbers for known caregivers / representatives who currently or will assist patient after discharge: YSABEL GRANT - DAUGHTER- [phone] * Verbal permission to speak to the caregivers and representatives has been obtained from the patient. Yes * Community resources currently utilized None * Additional services required to return to the preadmission environment? No * Can the patient safely return to the preadmission environment? Yes * Has this patient been hospitalized within the prior 30 days at any hospital? No Coverage Notice Reviewer: [id number] - Rylie Ramirez Notice Issued Date-Time: 09/11/2019 13:45 Notice Type: Patient Choice Letter Notice Delivered To: Patient Relationship to Patient: Self Analyst Market Intelligence Name: Delivery Method: HAND - Hand Delivered Rama Days: Prior Verbal Notification: Recipient Understood Notice: Yes Recipient Signature: Yes Med Rec Note Co-signed by Attending: Coverage Notice Comment: Reviewer: [id number] - Nguyễn Carrasco Notice Issued Date-Time: 09/12/2019 10:25 Notice Type: IM Discharge Notice Notice Delivered To: Patient Relationship to Patient: Analyst Market Intelligence Name: Delivery Method: HAND - Hand Delivered Rama Days: Prior Verbal Notification: Recipient Understood Notice: Yes Recipient Signature: Yes Med Rec Note Co-signed by Attending: Coverage Notice Comment: Last DP export: 09/12/19 2:54 p Patient Name: TERESA HAAS Page 64498 at 1729 All edits/amendments must be made on the electronic document DICTATION DATE: 09/12/191727 CLINICAL REHABILITATION COORDINATOR: GLORIA 09/12/191727 RPT#: [id number] NM DATE: STATUS: ADM IN [facility] [address] [facility] [place] [address] END OF REPORT
--- NOTE | 2019-09-12 18:30 | NUR ---
PT DISCHARGED HOME VIA WHEELCHAIR WITH [facility]AX[facility]. PIV REMOVED WITH CATHETER TIP FULLY INTACT. PT SIGNED PROPER DISCHARGE INSTRUCTIONS AND REMOVED ALL VALUABLES FROM THE ROOM. TELEMETRY REMOVED AND RETURNED. SCRIPTS GIVEN.
--- NOTE | 2019-09-15 09:06 | MORECARE ---
CASE MANAGEMENT DISCHARGE SUMMARY PATIENT: TERESA HAAS UNIT: [id number] ADM DATE: 09/10/19 AGE: 64 : 59 SEX: M ROOM/BED: D.4981 AUTHOR: DULCE,DOC PHYSICIAN: REFERRING PHYSICIAN: RAYMOND NIEVES MD DATE OF SERVICE: 09/15/19 Discharge Plan Patient Name: TERESA HAAS Facility: [facility]:[place] : 1955 Planned Disposition: Home with Home Health Anticipated Discharge Date: 09/12/19 Discharge Date: 09/12/2019 Expected LOS: 2 Initial Reviewer: [email or web address] Initial Review Date: 09/10/2019 Generated: 09/15/19 10:05 am Comments DCP- Discharge Planning Updated by [id number]: Rylie Guzmán on 09/12/19 2:[address] CM gave information on meals on wheels for [employer] for patient to be able to follow up with, CM will continue to follow and assist as needed with discharge planning / needs DCP- Discharge Planning Updated by [id number]: Nguyễn Carrasco on 09/12/19 2:[address] Patient Name: TERESA HAAS Encounter No: [id number] : 1955 Primary Insurance: [facility] MEDICARE SOLUTIONS Anticipated DC Date: 09-12-2019 Planned Disposition: Home with Home Health External Planned Provider: [facility] DCP follow-up note: FATIMAH SPOKE TO REGARDING PT'S NEED TO FILL HYPERTENSIVE MEDICATIONS. FATIMAH DISCUSSED HOME HEALTH AVAILABILITY AND PT'S WILLINGNESS FOR THE SERVICE, IN AGREEMENT WITH NEED OF HOME HEALTH. HOME HEALTH ORDER OBTAINED. FATIMAH SPOKE TO PT WHO INFORMED CM THAT HIS FAMILY CANNOT PICK HIM UP UNTIL TOMORROW. CM REVIEWED CHART, PT HAS MEDICAID. PT HAS NEVER USED MEDICAID TRANSPORTATION BUT IS WILLING FOR MEDICAID TRANSPORT IF IT WILL SAVE THEM MONEY ON TRANSPORTATION. CM CALLED MEDICAID TRANSPORATATION, PT IS NOT ELIGIBLE FOR MEDICAID TRANSPORT HE HAS ONLY "QMB" MEDICAID. FATIMAH DISCUSSED WITH PT WHO HAS NO OTHER WAY HOME OTHER THEN TO WAIT ON FAMILY FOR TOMORROW. PT DOES NOT QUALIFY FOR AMBUANCE TRANSPORT HE IS UP INDEPENDENTLY IN ROOM WITH NO MEDICAL TRANSPORT NEEDS. FATIMAH DISCUSSED WITH DIRECTOR MARY OF CASE MANAGEMENT WHO APPROVED [employer]AXI SERVICE TO GET PT HOME TODAY. CM SPOKE TO PT WHO IS IN AGREEMENT WITH TRANSPORT PLAN AND FEELS WELL TO GO HOME. PT REPORTS HAVING THORNE TO GET INTO HOUSE AND HE WILL NOTIFY HIS FAMILY. CM PROVIDED AND DISCUSSED MEALS ON WHEELS INFORMATION PROVIDED BY RN FATIMAH GUZMÁN. CM PROVIDED AND DISCUSSED IMPORTANT MESSAGE FROM MEDICARE. PT REPORTS HAVING INSURANCE TO ASSIST IN PAYING FOR MEDICATION, HAS COPAY'S BUT CAN AFFORD ALL OF HIS MEDICATIONS. PT'S DAUGHTER PICKS THEM UP FROM PHARMACY FOR HIM. PT DENIES FURHTER NEEDS. CM SPOKE TO BEDSIDE NURSE WHO INFORMED CM THAT PT'S BLOOD PRESSURE WAS WITHIN NORMAL LIMITS. CM CALLED [employer] [facility], , APPROVED [facility] BREAKER OILER FOR TRANSPORT HOME TODAY TO [address] [place] [address] [place], COSTS TO CASE MANAGEMENT OF $235.00. CM NOTIFIED FIRE SPRINKLER SERVICE TECHNICIAN NURSE. CM CALLED [facility] IN [place], , PROVIDED REFERRAL TO [facility] WHO TOOK REFERRAL AND PLACED PT ON SCHEDULE FOR ADMIT ON SUNDAY. CM NOTIFED PT WHO IS IN AGREEMENT WITH PLAN. CM FAXED REFERRAL AND DISCHARGE INFORMATION TO [email or web address] IN [place] AT [phone]. NURSE TO CALL [employer] [facility] AT [phone] WHEN PT HAS BEEN DISCHARGED AND IS READY TO BE WHEELED DOWNSTAIRS. THE T[facility] HAS BEEN APPROVED BY CM DIRECTOR MARY AND ARRANGED BY FATIMAH CARRASCO. Nguyễn Carrasco, CASE MANAGEMENT DCP- Discharge Planning Updated by [id number]: Rylie Guzmán on 09/11/19 6:[address] Patient Name: TERESA HAAS Admission Status: ER Accout number: [id number] Admission Date: 09-10-2019 : 1955 Admission Diagnosis: Attending: RAYMOND NIEVES Current LOS: 1 Anticipated DC Date: Planned Disposition: Home with Home Health Primary Insurance: [facility] MEDICARE SOLUTIONS Discharge Planning Comments: CM met with patient at bedside after explaining CM role and obtaining verbal consent. Patient lives at home with his [place] [address] where he is independent with his care and plans to return there upon discharge. Patient feels this would be a safe discharge. CM discussed availability / needs of home health and medical equipment. Patient would like Home health when discharged KATE signed for [facility] . Patient also would like to check about meals on wheels. Patient states he will have his family drive him home upon discharge. CM will continue to follow and assist as needed with discharge planning / needs. Pulp Maker: Rylie Ramirez RUBINA - Discharge Planning Initial Assessment Updated by [email or web address]: Rylie Guzmán on 09/11/19 7:29 pm * Is the patient Alert and Oriented? Yes * How many steps to enter\\exit or inside your home? * PCP KELLIE * [facility] * Preadmission Environment Home with Family * ADLs Independent * Other Equipment WALKER, CRUTCHES, WALKING STICK * List name and contact numbers for known caregivers / representatives who currently or will assist patient after discharge: YSABEL GRANT - DAUGHTER- [phone] * Verbal permission to speak to the caregivers and representatives has been obtained from the patient. Yes * Community resources currently utilized None * Additional services required to return to the preadmission environment? No * Can the patient safely return to the preadmission environment? Yes * Has this patient been hospitalized within the prior 30 days at any hospital? No Coverage Notice Reviewer: [id number] - Rylie Daver Notice Issued Date-Time: 09/11/2019 13:45 Notice Type: Patient Choice Letter Notice Delivered To: Patient Relationship to Patient: Self Secret Code Expert Name: Delivery Method: HAND - Hand Delivered Rama Days: Prior Verbal Notification: Recipient Understood Notice: Yes Recipient Signature: Yes Med Rec Note Co-signed by Attending: Coverage Notice Comment: Reviewer: [id number] - Nguyễn Carrasco Notice Issued Date-Time: 09/12/2019 10:25 Notice Type: IM Discharge Notice Notice Delivered To: Patient Relationship to Patient: Secret Code Expert Name: Delivery Method: HAND - Hand Delivered Rama Days: Prior Verbal Notification: Recipient Understood Notice: Yes Recipient Signature: Yes Med Rec Note Co-signed by Attending: Coverage Notice Comment: Last DP export: 09/12/19 4:29 p Patient Name: TERESA HAAS Page 89202 at 0906 All edits/amendments must be made on the electronic document DICTATION DATE: 09/15/19905 NET SOFTWARE DEVELOPER: GLORIA 09/15/19905 RPT#: [id number] DC DATE:09/12/19 STATUS: [facility] [address] [place] [address] END OF REPORT
--- NOTE | 2019-09-16 11:24 | EC ---
PATIENT:TERESA HAAS DATE OF SERVICE: 09/10/19 SEX: M MEDICAL RECORD: [id number] DATE OF : [birth year] LOCATION:D. D.212 AGE OF PATIENT: 64 ADMISSION DATE: 09/10/19 REFERRING PHYSICIAN: INTERPRETING PHYSICIAN: FRANCESCA WOODS MD ECHOCARDIOGRAM REPORT ECHO CHARGES 4 ECHO COMPLETE Date: 09/11/19 CLINICAL DIAGNOSIS: CHF/AVR MECHANICAL/HTN ECHOCARDIOGRAPHIC MEASUREMENTS (adult normal given) AC root (d.<3.7cm) 3.0 cm LV Septum d (<1.2 cm> 1.5 cm Valve Excursion 1.7 cm LV Septum (systole) 1.6 cm Left Atria (s.<4.0cm> 4.6 cm LVPW d(<1.2cm) 1.7 cm RV (d.<2.3cm) 4.7 cm LVPW (sytole) 2.0 cm LV diastole(<5.6CM) 7.2 cm MV E-F(>70mm/sec) cm LV systole 6.0 cm LVOT Diameter 1.9 cm MV exc.(>10mm) 2.0 cm Est.ejection fraction (50-75%) % DOPPLER: LVIT cm/sec A 109 cm/sec E 85.0 cm/sec LA cm/sec RVSP 12 mmHg LVOT 75 cm/sec AOP1/2T m/s Asc. Ao 249 cm/sec RVOT cm/sec RA cm/sec PA cm/sec AV Gradient Peak 24.84mmHg AV Mean 16.53mmHg AV Area 1.2 cm MV Gradient Peak 4.97 mmHg MV Mean 1.68 mmHg MV Area cm COMMENTS: Medical Superintendent: 2 MITCHELL MENDOZA Branch Service Representative: 3 Dr. Carrero TAPE# PACS Pericardial Effusion N DATE OF SERVICE: ECHOCARDIOGRAM FINDINGS: 1. Left ventricular chamber size is moderately dilated. Left ventricular systolic function is moderately reduced at 30% to 35%. 2. Left atrium is enlarged at 4.6 cm. Right atrium and right ventricular chamber sizes are as well mildly dilated. 3. Valvular structures: Aortic valve is replaced with mechanical prosthesis ECHOCARDIOGRAM REPORT [id number] TERESA HAAS with normal structure and function in this position. The remaining valvular structures have normal structure and motion. 4. Doppler interrogation reveals [id number] mitral regurgitation, trace aortic insufficiency. No other valvular insufficiency or stenosis. 5. No evidence of pericardial effusion or left ventricular thrombus. TRANSINT:[id number] Voice Confirmation ID: [id number] DOCUMENT ID: [id number] FRANCESCA WOODS MD at 1124 CC: [id number] DICTATION DATE: 09/11/19 1206 CERTIFIED CAREGIVER: 09/11/19 1600 DIS IN 09/12/19 [place] [address]
--- NOTE | 2019-09-16 17:20 | MORECARE ---
CASE MANAGEMENT DISCHARGE SUMMARY PATIENT: TERESA HAAS UNIT: [id number] ADM DATE: 09/10/19 AGE: 64 : 59 SEX: M ROOM/BED: D.8941 AUTHOR: DULCE,DOC PHYSICIAN: REFERRING PHYSICIAN: RAYMOND NIEVES MD DATE OF SERVICE: 09/16/19 Discharge Plan Patient Name: TERESA HAAS Facility: [facility] : 1955 Planned Disposition: Home with Home Health Anticipated Discharge Date: 09/12/19 Discharge Date: 09/12/2019 Expected LOS: 2 Initial Reviewer: [id number] Initial Review Date: 09/10/2019 Generated: 09/16/19 6:19 pm Comments DCP- Discharge Planning Updated by [email or web address]: Nguyễn Carrasco on 09/16/19 4:[address] Patient Name: TERESA HAAS Encounter No: [id number] : 1955 Primary Insurance: [facility] [employer] [employer] Anticipated DC Date: 09-12-2019 Planned Disposition: Home with Home Health External Planned Provider: [facility] DCP follow-up note: CM RECEIVED CALL FROM PT'S [facility], [facility], . JEANNIE STATES THAT PT DID NOT GET HIS HOME MEDICATIONS AND LIFE ALERT BUTTON FROM THE HOSPITAL AT DISCHARGE. CM CALLED AND SPOKE TO PHARMACIST DANIELLA; PT'S MEDICATION AND LIFE ALERT BUTTON LOCATED IN PHARMACY AND OVERNIGHT MAILED TO PT AT HOME. CM NOTIFIED PT'S DAUGHTER YSABEL GRANT VIA PHONE, , WHO WILL ENSURE PT IS AT HOME TO RECEIVE HIS MEDICATIONS. Nguyễn Carrasco, CASE MANAGEMENT DCP- Discharge Planning Updated by [id number]: Rylie Guzmán on 09/12/19 2:[address] CM gave information on meals on wheels for [place] for patient to be able to follow up with, CM will continue to follow and assist as needed with discharge planning / needs DCP- Discharge Planning Updated by [id number]: Nguyễn Carrasco on 09/12/19 2:[address] Patient Name: TERESA HAAS Encounter No: [id number] : 1955 Primary Insurance: [facility] [employer] [employer] Anticipated DC Date: 09-12-2019 Planned Disposition: Home with Home Health External Planned Provider: [facility] DCP follow-up note: FATIAMH SPOKE TO REGARDING PT'S NEED TO FILL HYPERTENSIVE MEDICATIONS. CM DISCUSSED HOME HEALTH AVAILABILITY AND PT'S WILLINGNESS FOR THE SERVICE, . IN AGREEMENT WITH NEED OF HOME HEALTH. HOME HEALTH ORDER OBTAINED. CM SPOKE TO PT WHO INFORMED CM THAT HIS FAMILY CANNOT PICK HIM UP UNTIL TOMORROW. CM REVIEWED CHART, PT HAS MEDICAID. PT HAS NEVER USED MEDICAID TRANSPORTATION BUT IS WILLING FOR MEDICAID TRANSPORT IF IT WILL SAVE THEM MONEY ON TRANSPORTATION. CM CALLED MEDICAID TRANSPORATATION, PT IS NOT ELIGIBLE FOR MEDICAID TRANSPORT HE HAS ONLY "[place]" MEDICAID. CM DISCUSSED WITH PT WHO HAS NO OTHER WAY HOME OTHER THEN TO WAIT ON FAMILY FOR TOMORROW. PT DOES NOT QUALIFY FOR [facility] TRANSPORT HE IS UP INDEPENDENTLY IN ROOM WITH NO MEDICAL TRANSPORT NEEDS. CM DISCUSSED WITH DIRECTOR MARY OF CASE MANAGEMENT WHO APPROVED [facility] SERVICE TO GET PT HOME TODAY. CM SPOKE TO PT WHO IS IN AGREEMENT WITH TRANSPORT PLAN AND FEELS WELL TO GO HOME. PT REPORTS HAVING THORNE TO GET INTO HOUSE AND HE WILL NOTIFY HIS FAMILY. CM PROVIDED AND DISCUSSED MEALS ON WHEELS INFORMATION PROVIDED BY RN FATIMAH GUZMÁN. CM PROVIDED AND DISCUSSED IMPORTANT MESSAGE FROM MEDICARE. PT REPORTS HAVING INSURANCE TO ASSIST IN PAYING FOR MEDICATION, HAS COPAY'S BUT CAN AFFORD ALL OF HIS MEDICATIONS. PT'S DAUGHTER PICKS THEM UP FROM PHARMACY FOR HIM. PT DENIES FURHTER NEEDS. CM SPOKE TO BEDSIDE NURSE WHO INFORMED CM THAT PT'S BLOOD PRESSURE WAS WITHIN NORMAL LIMITS. CM CALLED [facility], , APPROVED TAXI PRESIDING JUDGE FOR TRANSPORT HOME TODAY TO [address] [place] [address] IN [place], COSTS TO CASE MANAGEMENT OF $235.00. CM NOTIFIED HOME HEALTH CLINICIAN NURSE. CM CALLED [facility] IN [place], , PROVIDED REFERRAL TO [facility] WHO TOOK REFERRAL AND PLACED PT ON SCHEDULE FOR ADMIT ON SUNDAY. CM NOTIFED PT WHO IS IN AGREEMENT WITH PLAN. CM FAXED REFERRAL AND DISCHARGE INFORMATION TO [facility] IN [place] AT [phone]. NURSE TO CALL [facility] AT [phone] WHEN PT HAS BEEN DISCHARGED AND IS READY TO BE WHEELED DOWNSTAIRS. THE TAXI HAS BEEN APPROVED BY CM DIRECTOR MARY AND ARRANGED BY FATIMAH CARRASCO. Nguyễn Carrasco, CASE MANAGEMENT DCP- Discharge Planning Updated by [id number]: Rylie Guzmán on 09/11/19 6:[address] Patient Name: TERESA HAAS Admission Status: ER Accout number: [id number] Admission Date: 09-10-2019 : 1955 Admission Diagnosis: Attending: RAYMOND NIEVES Current LOS: 1 Anticipated DC Date: Planned Disposition: Home with Home Health Primary Insurance: [facility] [employer] [employer] Discharge Planning Comments: CM met with patient at bedside after explaining CM role and obtaining verbal consent. Patient lives [place] [address] where he is independent with his care and plans to return there upon discharge. Patient feels this would be a safe discharge. CM discussed availability / needs of home health and medical equipment. Patient would like Home health when discharged KATE signed for [facility] . Patient also would like to check about meals on wheels. Patient states he will have his family drive him home upon discharge. CM will continue to follow and assist as needed with discharge planning / needs. Staff Counselor: Rylie Guzmán DCPIA - Discharge Planning Initial Assessment Updated by [email or web address]: Rylie Guzmán on 09/11/19 7:29 pm * Is the patient Alert and Oriented? Yes * How many steps to enter\\exit or inside your home? * PCP KELLIE * [facility] * Preadmission Environment Home with Family * ADLs Independent * Other Equipment WALKER, CRUTCHES, WALKING STICK * List name and contact numbers for known caregivers / representatives who currently or will assist patient after discharge: YSABEL GRANT - DAUGHTER- [phone] * Verbal permission to speak to the caregivers and representatives has been obtained from the patient. Yes * Community resources currently utilized None * Additional services required to return to the preadmission environment? No * Can the patient safely return to the preadmission environment? Yes * Has this patient been hospitalized within the prior 30 days at any hospital? No Coverage Notice Reviewer: [email or web address] - Rylie Guzmán Notice Issued Date-Time: 09/11/2019 13:45 Notice Type: Patient Choice Letter Notice Delivered To: Patient Relationship to Patient: Self Agronomy Location Manager Name: Delivery Method: HAND - Hand Delivered Rama Days: Prior Verbal Notification: Recipient Understood Notice: Yes Recipient Signature: Yes Med Rec Note Co-signed by Attending: Coverage Notice Comment: Reviewer: [id number] - Nguyễn Carrasco Notice Issued Date-Time: 09/12/2019 10:25 Notice Type: IM Discharge Notice Notice Delivered To: Patient Relationship to Patient: Agronomy Location Manager Name: Delivery Method: HAND - Hand Delivered Rama Days: Prior Verbal Notification: Recipient Understood Notice: Yes Recipient Signature: Yes Med Rec Note Co-signed by Attending: Coverage Notice Comment: Last DP export: 09/15/19 8:06 a Patient Name: TERESA HAAS Page [phone] at 1720 All edits/amendments must be made on the electronic document DICTATION DATE: 09/16/191718 MARKET MAKER: GLORIA 09/16/191718 RPT#: [id number] DC DATE:09/12/19 STATUS: DIS IN [facility] [address] [place] [address] END OF REPORT
== END 2019-09-12 18:31 | disposition home health service (06) | DRG 305 ==
LOC: D.ER 20:34 → D.M2 22:19 → D.ICU 22:19 → D.M2 09-11 16:27
PROVIDERS: Family Medicine; ADMIT Family Medicine; ATTEND Family Medicine
DX: I16.9 Hypertensive crisis, unspecified (principal); N18.4 Chronic kidney disease, stage 4 (severe); N17.9 Acute kidney failure, unspecified; I50.20 Unspecified systolic (congestive) heart failure; I50.22 Chronic systolic (congestive) heart failure; I13.0 Hypertensive heart and chronic kidney disease with heart failure and stage 1 through stage 4 chronic kidney disease, or unspecified chronic kidney disease; Z79.01 Long term (current) use of anticoagulants; Z95.2 Presence of prosthetic heart valve; E78.5 Hyperlipidemia, unspecified; Z91.14 Patient's other noncompliance with medication regimen

== ENCOUNTER 2020-01-02 13:37 | Inpatient (IN) | payer MEDICARE, MEDICAID ==
[~2020-01-02] VITALS: Ht 198.1 cm; Wt 88.2 kg
[2020-01-02] VITALS (7 sets, daily range): BP systolic 139–186; BP diastolic 20–130; BMI 21.8
--- NOTE | ~2020-01-02 | HEMODYNAMI ---
PATIENT:TERESA HAAS MEDICAL RECORD: [id number] : [birth year] [facility]# [id number] ADMISSION DATE: 01/02/20 Generatedon:01/03/20209:42 Patient name: TERESA HAAS Patient #: [id number] SSN: [id number] : 1955 Date of study: 01/03/2020 Page: Of Hemodynamic Procedure Report Patient Data Patient Demographics Procedure consent was obtained First Name: TERESA Gender: Male Last Name: SAMINA : 1955 [facility] Initial: L Age: 64 year(s) Patient #: [id number] Race: Black SSN: [id number] Additional ID: [id number] Contact details [address]: [address] [place] [address] State: [place] City: [place] Zip code: [address] Admission Admission Data Admission Date: 01/02/2020 Admission Time: 15:32 Arrival Date: 01/02/2020 Arrival Time: 15:32 Admit Source: Other Insurance Payor: Medicare Room #: D.2119 [facility] #: [id number] Height (in.): 77.95 BSA: 2.21 (m2) Height (cm.): 198 BMI: 21.94 (kg/m2) Weight (lbs.): 189.6 Weight (kg.): 86 Lab Results Lab Result Date: 01/03/2020 Lab Result Time: 0:00 Biochemistry Name Units Result Min Max BUN mg/dl 61 --(----)-* 7 18 Creatinine mg/dl 6.2 --(----)-* 0.6 1.3 eGFR ml/min 12 *-(----)-- 90 120 AM CBC Name Units Result Min Max Hemoglobin g/dl 8.2 *-(----)-- 13.5 17.5 Procedure Procedure Types Cath Procedure Diagnostic Procedure [facility] Coronaries only Aortic Root Angiography Procedure Description Procedure Date Procedure Date: 01/03/2020 Procedure Start Time: 9:15 Procedure End Time: 9:37 Procedure Staff Name Function Wilfredo Mancera MD Performing Physician Arpan Pate RN Nurse Tata Villalobos RT Monitor Vanna Ellis RT Scrub Procedure Data Cath Procedure Fluoroscopy Diagnostic fluoroscopy Total fluoroscopy Time: 5.5 time: 5.5 min min Diagnostic fluoroscopy Total fluoroscopy dose: 780 dose: 780 mGy mGy Contrast Material Contrast Material Type Amount (ml) Isovue 300 120 Entry Location Entry Primary Successful Side Size Upsize Upsize Entry Closure Succes sful Closure Location (Fr) 1 (Fr) 2 (Fr) Remarks Device Remarks Femoral Right 5 Fr 6 Fr 6 Fr Exoseal artery Long Short Estimated blood loss: 5 ml Diagnostic catheters Device Type Used For End Catheter Placement MULTIPACK JL 4.0 5Fr Left Coronary catheter Angiography DIAGNOSTIC JL 5 5Fr Left Coronary catheter ([id number]) Angiography DIAGNOSTIC JL 5 5Fr Left Coronary catheter ([id number]) Angiography DIAGNOSTIC JL 6 5Fr Left Coronary catheter ([id number]) Angiography MULTIPACK 3DRC 5Fr Right Coronary catheter Angiography DIAGNOSTIC AR2 MOD 5 Fr Right Coronary catheter ([id number]) Angiography MULTIPACK Pigtail 5 Fr LV Angiography catheter Procedure Complications No complications Procedure Medications Medication Administration Route Dosage Oxygen etCO2 Nasal cannula 2 l/min Lidocaine 2% added to field 20 Heparin Flush Bag added to field 2 bags (1000units/500ml NS) 0.9% NaCl I.V. Fentanyl I.V. 50 mcg Fentanyl I.V. 50 mcg Hemodynamics Rest BSA: 2.21 (m2) HGB: 8.2 (g/dl) O2 Consumption: Estimated: 269.27 (ml/min) O2 Con sumption indexed: Estimated:121.84 (ml/min/m) Heart Rate: 82 (bpm) Snapshots Pre Cath Intra NCS Post Cath Vital Signs Time Heart Resp SPO2 etCO2 NIBP (mmHg) Rhythm Pain Sedation Rate (ipm) (%) (mmHg) Status Level (bpm) 8:54:50 82 14 91 0 177/131(159) NSR 0 (11) 10(A) , No pain 8:59:17 89 19 95 31.3 181/126(165) NSR 0 (11) 10(A) , No pain 9:03:43 83 16 98 29.8 176/125(154) NSR 0 (11) 10(A) , No pain 9:08:09 83 14 99 33.6 174/121(156) NSR 0 (11) 10(A) , No pain 9:12:35 82 16 98 19.4 163/116(146) NSR 0 (11) 10(A) , No pain 9:16:56 82 15 98 35.8 140/113(134) NSR 0 (11) 10(A) , No pain 9:21:07 84 14 97 41 135/113(129) NSR 0 (11) 9(A) , No pain 9:26:13 81 14 96 37.3 150/112(126) NSR 0 (11) 9(A) , No pain 9:31:05 80 14 96 24.6 170/114(155) NSR 0 (11) 10(A) , No pain 9:35:28 78 15 97 35 160/114(146) NSR 0 (11) 10(A) , No pain Medications Time Medication Route Dose Verified Delivered Reason Notes Effe ctiveness by by 9:05:51 Oxygen etCO2 2 Wilfredo Antony used for Nasal l/min [facility] Alfred[facility] Pate RN procedure cannula 9:05:58 Lidocaine 2% added 20ml Wilfredo Villalobos for local to vial [facility] anesthetic field MD CARDONA 9:06:23 Heparin Flush added 2 Wilfredo Wilfredo used for Bag to bags [facility] procedure (1000units/500ml field MD CARDONA NS) 9:06:33 0.9% NaCl I.V. kvo Wilfredo Antony Per ml/hr [facility] Alfredo Pate RN physician 9:12:23 Fentanyl I.V. [address] for mcg [address] Luis Alrfedo Pate RN sedation 9:19:00 Fentanyl I.V. [address] m[address] [facility] Alfredo Pate RN sedation Procedure Log Time Note 8:27:06 Diagnostic Cath Status : Elective 8:29:17 Informed consent obtained and on chart 8:31:26 Arrival Date: 01/02/2020 3:32:00 PM 8:31:47 Admit Source: Other 8:31:51 Insurance Payor : Medicare 8:32:59 Patient Height : 77.95 inches 8:33:03 Patient Weight : 189.6 lbs 8:34:11 Lab Result : eGFR AM 12 ml/min 8:34:11 Lab Result : Hemoglobin 8.2 g/dl 8:34:11 Lab Result : BUN 61 mg/dl 8:34:11 Lab Result : Creatinine 6.2 mg/dl 8:34:17 Procedure Status Urgent Heart Cath (IP). 8:34:20 Arpan Pate RN sent for patient. Start room use. 8:34:21 Time tracking: Regular hours (M-F 7:00 - 5:00) 8:34:32 Plan of Care:Hemodynamics will remain stable., Cardiac rhythm will remain stable., Comfort level will be maintained., Respiratory function will remain adequate., Patient/ family verbilizes understanding of procedure., Procedure tolerated without complication., Recovers from procedure without complications.. 8:53:34 Patient received from Med II to CCL 1 Alert and oriented. Tansferred to table in Supine position. 8:53:35 Warm blankets applied, and romina hugger turned on for patient comfort. 8:53:36 Correct patient and procedure confirmed by team. 8:53:36 ECG and BP/O2 sat monitors applied to patient. 8:53:38 Vital chart was started 8:53:39 Baseline sample Acquired. 8:53:49 Rhythm: sinus tachycardia 8:53:51 Full Disclosure recording started 8:53:55 H&P Date Dictated: 01/03/2020 ER History on chart., New H&P dictated by physician.. 8:53:57 Pre-procedure instructions explained to patient. 8:53:57 Pre-op teaching completed and patient verbalized understanding. 8:54:01 Family unavailable. 8:54:03 Patient NPO since Midnight. 8:54:06 Is the patient allergic to Iodine/contrast media? No. 8:54:07 Was the patient premedicated? Yes 8:54:08 Is patient on blood thinner?Yes 8:54:11 ACC The patient was administered the following blood thiners within the last 24 hours: Coumadin 8:54:13 Patient diabetic? No. 8:54:20 Previous problem with sedation/anesthesia? No ? 8:54:22 Snore? Yes 8:54:23 Sleep apnea? Yes 8:54:25 Deviated septum? No 8:54:25 Opens mouth fully? Yes 8:54:27 Sticks out tongue? Yes 8:54:30 Airway obstruction? No ? 8:54:33 Dentures? No ? 8:54:37 Pre procedure: right dorsailis pedis pulse 1+ Palpable, but thready & weak; easily obliterated 8:54:40 Pre procedure: left dorsailis pedis pulse 1+ Palpable, but thready & weak; easily obliterated 8:54:43 Patient pain scale 0/10 ?. 8:54:50 IV patent on arrival in right antecubital with 0.9% NaCl at KVO. 8:54:56 Lab results completed and on chart. 8:55:01 Stress Test: no; N/A ? 9:01:03 Risk of Mortality: 1.6 9:01:07 Risk of blood transfusion: 37.1 9:01:11 Risk of CYNDIE: 24.4 9:01:14 Right groin area was prepped with chlora-prep and draped in sterile fashion 9:01:15 Alarms reviewed by R. N. 9:01:16 Sharps counted by scrub and verified by R.N. 9:01:22 5) <15 or on dialysis Very severe, or end stage kidney failure. 9:01:24 Maximum allowable contrast dose (3.7 X eGFR X 0.75)33 ml. 9:05:51 Oxygen 2 l/min etCO2 Nasal cannula was administered by Arpan Pate RN; used for procedure; Verbal order read back and verified. 9:05:58 Lidocaine 2% 20ml vial added to field was administered by Wilfredo Mancera MD; for local anesthetic; Verbal order read back and verified. 9:06:23 Heparin Flush Bag (1000units/500ml NS) 2 bags added to field was administered by Wilfredo Mancera MD; used for procedure; Verbal order read back and verified. 9:06:33 0.9% NaCl kvo ml/hr I.V. was administered by Arpan Pate RN; Per physician; Verbal order read back and verified. 9:12:07 Physician arrived 9:12:07 --------ALL STOP TIME OUT------ 9:12:08 Final Timeout: patient, procedure, and site verified with staff and physician. All members of the team are in agreement. 9:12:09 Right groin site verified by team. 9:12:15 Fire Safety Assessment: A--An alcohol-based skin anteseptic being used preoperatively., C--Open oxygen or nitrous oxide is being used., D--An ESU, laser, or fiber-optic light is being used. 9:12:23 Fentanyl 50 mcg I.V. was administered by Arpan Pate RN; for sedation; Verbal order read back and verified. 9:12:48 Physical assessment completed. ASA score P 2 - A patient with mild systemic disease as per Wilfredo Mancera MD. 9:12:52 Sedation plan: IV Moderate Sedation Medication:Versed, Fentanyl 9:12:56 Use device set Femoral Dx 9:12:57 ACIST Syringe (73143) opened to sterile field. 9:12:57 Bag Decanter (2002S) opened to sterile field. 9:12:58 Medline Cath Pack ([id number]) opened to sterile field. 9:12:59 ACIST Hand Control (64304) opened to sterile field. 9:12:59 ACIST Manifold (98403) opened to sterile field. 9:12:59 DIAGNOSTIC Multipack 5Fr catheter set ([id number]) opened to sterile field. 9:13:00 Tegaderm 4 x 4 (1626W) opened to sterile field. 9:13:02 SHEATH 5FR [place] (XUY180) opened to sterile field. 9:13:02 EMERALD Guide Wire (517-171) opened to sterile field. 9:15:06 Procedure started. 9:15:09 Local anesthetic to right femoral artery with Lidocaine 2% by Wilfredo Mancera MD.INITIAL ACCESS ONLY 9:15:17 A 5 Fr sheath was inserted into the Right Femoral artery 9:15:28 A MULTIPACK JL 4.0 5Fr catheter was advanced over the wire and used for Left Coronary Angiography. 9:17:57 Catheter removed. 9:18:39 A DIAGNOSTIC JL 5 5Fr catheter ([id number]) was advanced over the wire and used for Left Coronary Angiography. 9:19:00 Fentanyl 50 mcg I.V. was administered by Arpan Pate RN; for sedation; Verbal order read back and verified. 9:22:44 Catheter removed. unable to cannulate vessel. 9:22:53 SHEATH 6FR Destination (RSR01) opened to sterile field. 9:23:04 Sheath upsized to a 6 Fr Long. 9:24:19 A DIAGNOSTIC JL 5 5Fr catheter ([id number]) was advanced over the wire and used for Left Coronary Angiography. 9:25:19 Catheter removed. unable to cannulate vessel. 9:25:38 A DIAGNOSTIC JL 6 5Fr catheter (148323U) was advanced over the wire and used for Left Coronary Angiography. 9:28:49 LCA angiography performed. 9:28:51 Injector settings: Ml/sec: 3, Volume: 6, 9:28:53 Catheter removed. 9:29:07 A MULTIPACK 3DRC 5Fr catheter was advanced over the wire and used for Right Coronary Angiography. 9:29:19 Catheter removed. unable to cannulate vessel. 9:29:50 A DIAGNOSTIC AR2 MOD 5 Fr catheter ([id number]) was advanced over the wire and used for Right Coronary Angiography. 9:31:08 RCA angiography performed. 9:31:11 Injector settings: Ml/sec: 3, Volume: 6, 9:31:24 Catheter removed. 9:31:31 ACCDominant side:Right 9:31:41 A MULTIPACK Pigtail 5 Fr catheter was advanced over the wire and used for LV Angiography. 9:32:46 Aortic Root visualized 9:33:02 Catheter removed. 9:33:17 EXOSEAL 6Fr (EX600) opened to sterile field. 9:33:19 SHEATH 6FR [place] (FWA625) opened to sterile field. 9:33:54 Sheath upsized to a 6 Fr Short. 9:34:02 Sheath removed intact; hemostasis achieved with Exoseal to the Right Femoral artery. 9:34:04 Procedure ended.(Physican Out) 9:34:50 Fluoroscopy time 05.50 minutes. 9:34:55 Fluoroscopy dose: 780 mGy 9:34:55 Flurop Dose total: 780 9:35:01 Dose Area Product 63493 mGy/cm. 9:35:05 Contrast amount:Isovue 300 120ml. 9:35:08 Maximum allowable dose exceeded? Yes. 9:35:09 Sharps counted by scrub and verified by R.N. 9:35:29 Insertion/operative site no bleeding no hematoma. 9:36:08 Post-op/insertion site Right Femoral artery dressed using a 4 x 4 and Tegaderm. 9:36:10 Post Procedure Pulses reassessed and unchanged 9:36:13 Post procedure rhythm: unchanged. 9:36:16 Estimated blood loss: 5 ml 9:36:18 Post procedure instruction explained to patient.Patient verbalizes understanding. 9:36:18 Patient needs reinforcement of post procedure teaching. 9:36:54 Procedure type changed to Cath procedure, Diagnostic procedure, LHC, Coronaries only, Aortic Root Angiography 9:37:21 Procedure and supply charges have been captured, reviewed, submitted and are correct. 9:37:27 Procedure Complication : No complications 9:37:33 Vital chart was stopped 9:37:37 [facility] Findings: mild to moderate CAD (<70%) 9:37:40 Operative report dictated upon procedure completion. 9:37:41 See physician's report for complete and final results. 9:37:43 Report given to [facility]. 9:37:46 Patient transfered to [facility] with Stretcher. 9:37:48 Procedure ended. 9:37:48 Full Disclosure recording stopped 9:37:56 End room use (Document Last) 9:41:51 End room use (Document Last) 9:42:18 End room use (Document Last) Device Usage Item Name Manufacture Quantity Catalog Hospital Part Current Minimal L ot# / Number Charge Number Stock Stock Serial# Code ACIST Acist 1 87290 438700 727366 379609 20 Syringe Medical (91101) Systems Inc Bag Microtek 1 808294 20898 158030 5 Decanter Medical Inc. () Medline Medline 1 [id number] 635839 95210 257166 5 Cath Pack ([id number]) ACIST Hand Acist 1 70599 967504 489835 711428 5 Control Medical (22774) Systems Inc ACIST Acist 1 48253 407515 357559 711333 5 Manifold Medical (88044) Systems Inc DIAGNOSTIC Cardinal 1 SY2631 672417 06400 705720 30 MultipUserZoom 5Fr catheter set (KT0631) Tegaderm 4 3M 1 1626W 555463 437251 138387 5 x 4 (1626W) SHEATH 5FR Terumo 1 ZVK058 314539 663697 475811 5 [place] (WLN527) EMERALD Cardinal 1 502-455 696817 693853 989444 5 Guide Wire [facility] (502455) MULTIPACK Cardinal 1 072864 5 JL 4.0 5Fr Health catheter DIAGNOSTIC Cardinal 1 [id number] 484134 363661 219549 5 JL 5 5Fr Health catheter (595007P) SHEATH 6FR Terumo 1 RSR01 135575 65315 968142 5 Destination (RSR01) DIAGNOSTIC Cardinal 1 [id number] 846452 376716 341404 5 JL 6 5Fr Health catheter (121385R) MULTIPACK Cardinal 1 769596 5 3DRC 5Fr Health catheter DIAGNOSTIC Cardinal 1 905328V 101579 590831 372988 20 AR2 MOD 5 Health Fr catheter (408203T) MULTIPACK Cardinal 1 434331 5 Pigtail 5 Health Fr catheter EXOSEAL 6Fr Cardinal 1 EX600 958620 377635 779798 10 (EX600) Health SHEATH 6FR Terumo 1 GIV110 447610 224865 890474 40 [place] (HCI031) Signature Audit [place] Stage Time Signature Unsigned Intra-Procedure 01/03/2020 Vanna Ellis 9:41:51 AM RT(R) Intra-Procedure 01/03/2020 Arpan Pate RN 9:42:18 AM Intra-Procedure 01/03/2020 Wilfredo Jones 9:42:43 AM Luis Alfredo [facility] [address] [place] [id number]
[~2020-01-02 13:37] MED LIST: COREG6.25 MG PO; COUMADIN5 MG PO; FUROSEMIDE20 MG PO; HYDRALAZINE HCL50 MG PO; HYDROCODON-ACE1 EAC7 PO; PROCARDIA XL PO
--- NOTE | 2020-01-02 14:37 | NUR ---
DR YATES NOTIFIED OF INCREASED BP.
[2020-01-02 15:02] LABS: BASOPHILS 0 % (0-2); EOSINOPHILS 0 % (0-7); HEMATOCRIT 29.5 % (42.0-54.0); HEMOGLOBIN 9.3 g/dL (13.5-17.5); IMMATURE GRANULOCYTES 0.1 % (0-5); LYMPHOCYTES 7.2 % (15-50); MCH 29.2 pg (26.0-34.0); MCHC 31.5 g/dL (31.0-37.0); MCV 92.5 fL (80.0-100.0); MEAN PLATELET VOLUME 10.7 fL (7.4-10.4); NEUTROPHILS 76.7 % (40-80); PLATELET COUNT 145 10x3/uL (130-400); RBC 3.19 10x6/uL (4.20-6.10); RDW 13.6 % (11.5-14.5); WBC 7.1 10x3/uL (4.8-10.8)
[2020-01-02 15:12] LABS: APTT 34.1 SECONDS (22.8-39.4); CALC OSMOLALITY 299 mosm/kg (275-300); CALCIUM 8.4 mg/dL (8.5-10.1); CARBON DIOXIDE 20.8 mmol/L (21.0-32.0); CHLORIDE - SERUM 107 mmol/L (98-107); CREATININE - SERUM 6.2 mg/dL (0.6-1.3); INR 1.61 (0.85-1.17); POTASSIUM - SERUM 5.7 mmol/L (3.5-5.1); SODIUM 141 mmol/L (136-145); UREA NITROGEN 61 mg/dL (7-18); eGFR NON AFRICAN AMERICAN 10 mL/min (90-120)
[2020-01-02 15:14] LABS: GLUCOSE 131 mg/dL (74-106)
[2020-01-02 15:36] LABS: ALBUMIN 3.4 g/dL (3.4-5.0); ALKALINE PHOSPHATASE 70 U/L (30-120); ALT (SGPT) 624 U/L (10-68); CKMB 30.5 U/L (0.0-3.6); CREATINE KINASE 426 UL (21-232); MAGNESIUM - SERUM 2.6 mg/dL (1.8-2.4); PROTEIN - SERUM 6.7 g/dL (6.4-8.2)
[2020-01-02 15:38] LABS: TROPONIN-I 11.795 ng/mL (0.000-0.060)
[2020-01-02] MEDS ORDERED: TORADOL10 MG PO (18:04)
[2020-01-02] MEDS ORDERED: ZYLOPRIM100 MG PO (18:05)
[2020-01-02] MEDS ORDERED: NORVASC10 MG PO (18:06)
[2020-01-02] MEDS ORDERED: LISINOPRIL40 MG PO (18:07)
[2020-01-02] MEDS ORDERED: GABAPENTIN300 MG (18:07)
--- NOTE | 2020-01-02 22:21 | NUR ---
INITIAL ROUNDS COMPLETED AT 1915 HRS. PT DENIED ANY DISCOMFORT. ASSESMENT COMPLETED AT 2030 HRS. VSS. ALERT AND ORIENTED TO PERSON, PLACE AND TIME. MARTIN. SR PER CM HR 80. LUNGS DIMINISHED IN BASES BILAT. IV TO RAC WITH BICARB AT 100CC/HR. IV PATENT. EXPALINED TO PT RATIONALE FOR NPO AFTER MIDNIGHT. PT STATED UNDERSTANDING. PT INCONTINENT OF STOOL AT 2215 HRS. PT CLEANED, BED LINENS CHANGED. PT TOLERATED ACTIVITY WELL. PT CURRENTLY WATCHING TV. SR UP X2, CALL LIGHT WITHIN REACH.
--- NOTE | 2020-01-02 23:22 | NUR ---
BP 161/114. APRESOLINE 10MG SIVP GIVEN. WILL CONTINUE TO MONITOR.
[2020-01-03 00:17] VITALS: BP 157/101
--- NOTE | 2020-01-03 00:19 | NUR ---
BP NOW 157/101.
--- NOTE | 2020-01-03 01:56 | NUR ---
UA SENT TO LAB. DENIES ANY DISCOMFORT.
[2020-01-03 01:58] LABS: BILIRUBIN NEGATIVE (NEGATIVE); GLUCOSE NEGATIVE (NEGATIVE); KETONE NEGATIVE (NEGATIVE); NITRITE NEGATIVE (NEGATIVE); RED CELLS - URINE 0-5 /hpf (0-5); UROBILINOGEN NORMAL (NORMAL)
[2020-01-03 04:05] VITALS: BP 165/106
[2020-01-03 05:18] LABS: BASOPHILS 0.2 % (0-2); EOSINOPHILS 0.2 % (0-7); HEMATOCRIT 25.7 % (42.0-54.0); HEMOGLOBIN 8.2 g/dL (13.5-17.5); IMMATURE GRANULOCYTES 0.2 % (0-5); LYMPHOCYTES 12.9 % (15-50); MCH 28.8 pg (26.0-34.0); MCHC 31.9 g/dL (31.0-37.0); MEAN PLATELET VOLUME 10.1 fL (7.4-10.4); MONOCYTES 17.3 % (2-11); NEUTROPHILS 69.2 % (40-80); PLATELET COUNT 132 10x3/uL (130-400); RBC 2.85 10x6/uL (4.20-6.10); RDW 13.6 % (11.5-14.5); WBC 6.7 10x3/uL (4.8-10.8)
[2020-01-03 05:21] LABS: MCV 90.2 fL (80.0-100.0)
[2020-01-03 05:49] LABS: ALKALINE PHOSPHATASE 64 U/L (30-120); ALT (SGPT) 706 U/L (10-68); BILIRUBIN - TOTAL 0.46 mg/dL (0.2-1.3); CALC OSMOLALITY 301 mosm/kg (275-300); CALCIUM 8.5 mg/dL (8.5-10.1); CARBON DIOXIDE 24.6 mmol/L (21.0-32.0); CHLORIDE - SERUM 107 mmol/L (98-107); CKMB 21.3 U/L (0.0-3.6); CREATINE KINASE 407 UL (21-232); GLUCOSE 112 mg/dL (74-106); MAGNESIUM - SERUM 2.4 mg/dL (1.8-2.4); PROTEIN - SERUM 6.4 g/dL (6.4-8.2); SODIUM 142 mmol/L (136-145); UREA NITROGEN 64 mg/dL (7-18); eGFR NON AFRICAN AMERICAN 10 mL/min (90-120)
[2020-01-03 05:51] LABS: POTASSIUM - SERUM 3.9 mmol/L (3.5-5.1)
[2020-01-03 05:52] LABS: TROPONIN-I 22.534 ng/mL (0.000-0.060)
--- NOTE | 2020-01-03 06:16 | NUR ---
PT RESTED WELL DURING SHIFT. DENIED ANY DISCOMFORT. CALL LIGHT WITHIN REACH.
--- NOTE | 2020-01-03 06:25 | NUR ---
TROP NOW 22.534. DR GARCIA NOTIFIED. INFROMED OF TROPONIN, BUN AND CREATINE, PT/INR. NEW ORDERS RECEIVED AND NOTED.
--- NOTE | 2020-01-03 06:39 | NUR ---
LISA DVAEY IN PROGRESS.
[2020-01-03 06:56] LABS: ANION GAP 15.4 mmol/L (8-16); CALCIUM 8.3 mg/dL (8.5-10.1); CARBON DIOXIDE 23.5 mmol/L (21.0-32.0); CHOL - HDL RATIO 1.7 ratio (2.3-4.9); CREATININE - SERUM 6.2 mg/dL (0.6-1.3); LDL-HDL RATIO 0.5 ratio (1.5-3.5); POTASSIUM - SERUM 3.9 mmol/L (3.5-5.1)
--- NOTE | 2020-01-03 07:20 | NUR ---
CONSENTS SIGNED AND PLACED ON CHART AT 6867
--- NOTE | 2020-01-03 07:26 | NUR ---
RECEIVED REPORT. ASSUMED CARE OF PATIENT. RESTING IN BED WITH EYES OPEN. PATIENT AWARE OF PROCEDURE THIS AM. PATIENT STATES HE FEELS FINE THIS AM AND DENIES AND CHEST PAIN OR DISCOMFORT. BEDSIDE REPORT COMPLETED. WHITE BOARD UPDATED. NO DISTRESS.
--- NOTE | 2020-01-03 07:35 | NUR ---
BP 178/120. APRESOLINE ADMINISTERED AT THIS TIME.
--- NOTE | 2020-01-03 07:44 | NUR ---
BP 169/106
--- NOTE | 2020-01-03 08:27 | NUR ---
PREOP MEDS ADMINISTERED AT THIS TIME. AT BEDSIDE AT THIS TIME.
[2020-01-03 09:40] VITALS: BP 177/120
--- NOTE | 2020-01-03 09:42 | NUR ---
PATIENT REMAINS IN ELECTRICAL PROSPECTING SUPERVISOR AT THIS TIME.
--- NOTE | 2020-01-03 09:57 | NUR ---
PATIENT RETURNED TO UNIT VIA BED FROM SOCIAL WORK SPECIALIST AT THIS TIME.
--- NOTE | 2020-01-03 10:02 | NUR ---
RESTING FLAT, RIGHT GROIN DRESSING CLEAN DRY AND INTACT. NOS/S HEMATOMA FORMATION. PERIPHERAL PULSES PATENT. BP 170/108. CALL LIGHT WITHIN REACH. NO DISTRESS.
--- NOTE | 2020-01-03 11:51 | NUR ---
SPOKE WITH FRANSISCA IN XR AND NOTIFIED OF CXR PER FOR PLACEMENT OF TRIALYSIS.
[2020-01-03 13:12] VITALS: BP 170/113
--- NOTE | 2020-01-03 15:29 | NUR ---
PATIENTS SON CALLED WHILE THIS DOCUMENTATION LEAD IN ROOM PROVIDING CARE. PATIENT HANDED THIS DOCUMENTATION LEAD THE PHONE AND STATES MY SON IS ON THE PHONE AND CAN YOU PROVIDE AN UPDATE. UPDATED SON OF RESULTS FROM HEART CATH THIS AM AND THAT TRIALYSIS CATH PLACED TO LEFT NECK FOR DIALYISIS TREATMENTS AT THIS TIME. PATIENTS SON THANKED THIS DOCUMENTATION LEAD FOR THE UPDATE.
--- NOTE | 2020-01-03 19:45 | NUR ---
INITIAL ROUNDS AND ASSESSMENT COMPLETED. PT RESTING IN BED. NO DISTRESS. CALL LIGHT IN REACH. BED LOW AND SR UP X 2.
--- NOTE | 2020-01-03 21:00 | NUR ---
RESTING IN BED WITH NO DISTRESS. /88 WITH OCCASSIONAL PVCS PER TELEMETRY. CPOC. CALL LIGHT IN REACH.
--- NOTE | 2020-01-03 23:41 | NUR ---
ADMINISTERED APRESOLINE 10MG SIVP FOR ELEVATED BP 178/120. PT ALERT/DENIES PAIN OR DISCOMFORT. WATCHING TV. IV BICARB INFUSING.
[2020-01-04] VITALS: BP 171/108
[2020-01-04 04:00] VITALS: BP 89/57
--- NOTE | 2020-01-04 04:08 | NUR ---
NOTIFIED PER MONITORS THAT PT WAS SHOWING ELEVATED HEART RATE. ARRIVED TO ROOM TO FIND PATIENT DIAPHORETIC FROM HEAD TO TORSO. LEGS WERE DRY. FSBS 209. VS: 91/66, HR 78, TEMP 97.4 94% ON ROOM AIR. PT ROUSABLE ONLY TO PHYSICAL STIMULI. IVF BICARB AT 100ML/HR. PERSONAL CARE PROVIDED. CLEAN GOWN, CLEAN LINENS. LEFT JUGULAR TRIALYSIS IS STILL WEEPING SMALL AMOUNTS OF WATERY BLOOD. CARE PROVIDED. PT NOW SHOWING MULTI PVCS PER TELEMETRY.
[2020-01-04 04:20] LABS: BASOPHILS 0.2 % (0-2); EOSINOPHILS 0.6 % (0-7); HEMATOCRIT 28.3 % (42.0-54.0); HEMOGLOBIN 8.7 g/dL (13.5-17.5); IMMATURE GRANULOCYTES 0.3 % (0-5); LYMPHOCYTES 29.4 % (15-50); MCH 29.1 pg (26.0-34.0); MCHC 30.7 g/dL (31.0-37.0); MEAN PLATELET VOLUME 10.7 fL (7.4-10.4); MONOCYTES 9.6 % (2-11); NEUTROPHILS 59.9 % (40-80); PLATELET COUNT 140 10x3/uL (130-400); RBC 2.99 10x6/uL (4.20-6.10); RDW 14.1 % (11.5-14.5)
[2020-01-04 04:21] LABS: WBC 8.8 10x3/uL (4.8-10.8)
[2020-01-04 04:22] LABS: MCV 94.6 fL (80.0-100.0)
[2020-01-04 04:34] LABS: ANION GAP 17.7 mmol/L (8-16); BILIRUBIN - TOTAL 0.65 mg/dL (0.2-1.3); CALCIUM 8.1 mg/dL (8.5-10.1); CARBON DIOXIDE 22.1 mmol/L (21.0-32.0); CREATININE - SERUM 6.8 mg/dL (0.6-1.3); MAGNESIUM - SERUM 2.4 mg/dL (1.8-2.4); POTASSIUM - SERUM 3.8 mmol/L (3.5-5.1); PROTEIN - SERUM 6.7 g/dL (6.4-8.2)
--- NOTE | 2020-01-04 05:00 | NUR ---
RESTING WITH NO DISTRESS. SR/78 WITH PVCS. CONTINUE TO MONITOR.
--- NOTE | 2020-01-04 05:36 | NUR ---
BP 121/73 PT ALERT AND NOW ASKING FOR PAIN MEDS. WILL MONITOR.
--- NOTE | 2020-01-04 06:38 | NUR ---
PT RESTING WITH EYES CLOSED. EXPLAINED TO PATIENT THAT IT IS PREFERABLE FOR MD TO SEE HIM THIS AM WITHOUT HIM BEING MEDICATED DUE TO THE CHANGES HE HAD LAST NIGHT. PT SOFTLY REPLIED "OKAY". SR WITH OCCASSIONAL PVCS. WILL CONTINUE TO MONITOR. REPORT TO ONCOMING NURSE.
--- NOTE | 2020-01-04 07:20 | NUR ---
PT RESTING COMFORTABLY IN BED WITH EYES CLOSED, EASILY AROUSES TO VOICE. PT A/O X4, RESP EVEN AND NONLABORED. PT DOES C/O CHEST DISCOMFORT. RT AC INFUSING SODIUM BICARB AT 100CC/HR. LT JUGULAR TRIALYSIS IN PLACE WITH DRESSING ADHERED TO SKIN, SITE IS SEEPING A LITTLE. WILL CHANGE DRESSING AND CONTINUE TO MONITOR IT. MONITOR SHOWING SR WITH RATE OF 87 AND PVCS. PT DENIES ANY NEEDS AT THIS TIME. CALL LIGHT IN REACH, NAD NOTED, WILL CONTINUE TO MONITOR.
[2020-01-04 08:45] VITALS: BP 123/85
--- NOTE | 2020-01-04 08:47 | NUR ---
EKG DONE AND SEEN BY DR. MORALES.
--- NOTE | 2020-01-04 08:54 | NUR ---
AM MEDS GIVEN. ALSO GAVE 4MG OF ZOFRAN FOR NAUSEA. PT DENIES ANY OTHER NEEDS AT THIS TIME. CALL LIGHT IN REACH, NAD NOTED,W ILL CONTINUE TO MONITOR.
--- NOTE | 2020-01-04 08:56 | OP ---
PATIENT NAME: TERESA HAAS MEDICAL RECORD: [id number] :59 LOCATION:D.M2 D.2119 ADMISSION DATE:01/02/20 SURGEON: BRAD MORALES MD DATE OF OPERATION: 01/03/2020 PROCEDURE: Left heart catheterization, selective coronary angiography, right femoral artery approach, aortic root injection as well. CATHETERS: Actually, long 6-Setswana sheath, it acts as a tortuosity of the iliac system. The procedure was well tolerated. The patient returned to irizarry, sheath removed. ExoSeal device placed. FINDINGS: Left ventriculography not performed due to mechanical aortic valve. Aortic root injection shows dilated aortic root. There is trivial aortic insufficiency. Fluoroscopy shows excellent mobility of both leaflets of his mechanical valve. CORONARY ANATOMY: LEFT MAIN: Left main is free of disease. LAD: Free of disease in the diagonal system. CIRCUMFLEX: Free of disease in the marginal system. RIGHT CORONARY ARTERY: Dominant artery, gives rise to PDA, free of disease. IMPRESSION: No evidence of mechanical valve dysfunction via fluoroscopy or aortic root injection. Normal coronary anatomy. Suspect non-ST segment elevation myocardial infarction secondary to anemia, demand ischemia, hypertension, etc. TRANSINT:[id number] Voice Confirmation ID: [id number] DOCUMENT ID: [id number] BRAD MORALES MD at 0856 CC: [id number] DICTATION DATE: 01/03/20 0945 ADVERTISING ASSOCIATE: 01/03/20 1452 ADM IN [facility] [address] [place] [address]
[2020-01-04 09:13] LABS: AMYLASE - SERUM 682 U/L (25-115); LIPASE 122 U/L (73-393)
--- NOTE | 2020-01-04 11:18 | NUR ---
UNIT OF PRBC'S STARTED INFUSING TO LT IJ TRIALYSIS. PT RESTING COMFORTABLY IN BED, DENIES ANY OTHER NEEDS AT THIS TIME. CALL LIGHT IN REACH, NAD NOTED, WILL CONTINUE TO MONITOR.
--- NOTE | 2020-01-04 11:28 | NUR ---
UPDATED PT'S DAUGHTER YSABEL ABOUT PT'S CONDITION.
[2020-01-04 12:16] VITALS: BP 123/79
[2020-01-04 14:00] VITALS: BP 172/108
--- NOTE | 2020-01-04 14:29 | NUR ---
BLOOD FINISHED INFUSING. POST VITAL SIGNS STABLE. PT DENIES ANY NEEDS AT THIS TIME. CALL LIGHT IN REACH, NAD NOTED, WILL CONTINUE TO MONITOR.
--- NOTE | 2020-01-04 20:00 | NUR ---
NOTIFIED [facility], NOMAN HUNT APN, OF PT'S . NOTIFIED [facility], TIFFANIE JONES APN, OF PT'S .
--- NOTE | 2020-01-04 23:30 | NUR ---
1905 CHANGE OF SHIFT OCCURRING, MONITORS NOTED CHANGE IN RYTHYM PER TELEMETRY. STAFF TO ROOM. PT NOW SHOWING ASYSTOLE PER MONITOR. NO PULSE, NO RESPIRATIONS. CPR INITIATED AND ELYSIA RICHARDSON CALLED @ 1902. ELYSIA RICHARDSON TEAM ARRIVED, MEDS ADMINISTERED, PATIENT INTUBATED, CPR CONTINUED. PT NEVER REGAINED PULSE. TIME OF 1922, PRONOUNCED PER DR VALLE. DURING CODE, MECHANICAL DOOR REPAIRER CALLED PT'S DAUGHTER AND NOTIFIED HER OF CODE IN PROGRESS. FAMILY LIVES 2 HOURS AWAY. AFTER CODE COMPLETED. CALL BACK TO FAMILY RESIDENCE AND SPOKE WITH DAUGHTERS WHOM STATES HIS IS STILL HOME BUT UNABLE TO TALK. GIVEN PHONE NUMBER TO PATIENTS SON, JOSE HAAS. PHONE CALL TO JOSE HAAS AND SPOKE TO HIM ABOUT HIS FATHER CODING AND THE CODE TEAM WAS UNSUCCESSFUL IN BEING ABLE TO BRING HIM BACK. JOSE SAYS HE WILL SPEAK WITH THE REST OF THE FAMILY AND RETURN CALL TO THIS NURSE, RETURN CALL FROM JOSE HAAS WITH INFORMATION ON WHICH HOME TO CALL AND THAT THEY DID NOT RECALL THE PATIENT HAVING ANY VALUABLES HERE AT THE HOSPITAL. JACQUI HAS BEEN CALLED/NOTIFIED OF PT .RETURN CALL FROM COORDINATOR AND SHE STATES OK TO RELEASE BODY TO HOME AND JACQUI WILL FOLLOW UP WITH CONTINUED POTENTIAL ISSUES WITH THE FAMILY/ HOME, BUT THE BODY CAN BE RELEASED. SPOKE WITH [facility] ([phone]) AND THEY STATE BODY WILL BE TRANSPORTED WITHIN AN HOUR. [facility] HOME ARRIVED AND BODY RELEASED TO THEM AT THIS TIME. ALSO SENT PERSONAL BELONGING BAG WITH ONE SET OF CLOTHES AND PATIENTS SHOES.
[2020-01-05 08:08] VITALS: Ht 198.1 cm; Wt 88.2 kg
--- NOTE | 2020-01-05 08:58 | CN ---
PATIENT NAME:TERESA HAAS MEDICAL RECORD: [id number] : 59 LOCATION:D.Sanjay D.2119 ADMIT DATE: 01/02/20 ACCOUNT: [id number] CONSULTING PHYSICIAN: BRAD MORALES MD REFERRING PHYSICIAN: KASHIF MARTIN DO DATE OF CONSULTATION: 01/03/2020 HISTORY OF PRESENT ILLNESS: A 64-year-old gentleman with a history of cardiovascular disease status post aortic valve replacement, has a history of hypertension, hyperlipidemia as well as chronic renal insufficiency, approaching dialysis. He has actually had venous mapping in anticipation of the above, a 2 to 3 day history of rest symptomology, is transferred from [place] after being found to have NSTEMI. We are asked to see him concerning his cardiovascular status. PAST MEDICAL HISTORY: Includes; 1. History of aortic valve disease status post aortic valve replacement. 2. Hypertension. 3. Hyperlipidemia. 4. Chronic renal insufficiency with associated anemia. MEDICATIONS: Include warfarin per scale, amlodipine 10 mg p.o. every day, carvedilol 6.25 b.i.d., hydralazine 50 t.i.d., lisinopril 40 every day, Neurontin 300 t.i.d., [place] 5/325 as needed, Lasix 60 every day. SOCIAL HISTORY: Retired, worked previously as an [employer], nonsmoker. Easily able to take care of all his ADLs, does try to walk on a regular basis. REVIEW OF SYSTEMS: The patient reports easy bruising but reports no swollen glands. The patient reports no fever, no night sweats, no significant weight gain, no significant weight loss. No significant exercise tolerance. The patient reports no dry eyes, no irritation, no vision change. Patient reports no difficulty hearing and no ear pain. Patient reports no frequent nose bleeds or nose and sinus problems. Patient reports on arm pain on exertion. No shortness of breath while lying down. No history of heart murmur. Patient reports no cough, no wheezing or coughing up blood. Patient reports no abdominal pain, no vomiting. Normal appetite. No diarrhea and not vomiting blood. No nausea and no constipation. Patient reports no incontinence. No difficulty urinating. No hematuria. No increased frequency. Patient reports no muscle aches. No weakness, no arthralgias, no back pain. No swelling of the extremities. Patient reports no abnormal mole, no jaundice, no rashes. Reports no loss of consciousness. No weakness and no numbness. No seizures, dizziness, or headaches. The patient reports no depression, no sleep disturbance, feeling safe in a relationship and no alcohol abuse. Patient reports on fatigue. Reports no runny nose or sinus pressure. No itching, no hives, and no frequent sneezing. PHYSICAL EXAMINATION: GENERAL: Pleasant gentleman in no acute distress, appears stated age. VITAL SIGNS: Blood pressure 165/106, pulse 79 and regular. HEENT: Normocephalic, atraumatic. NECK: No JVD or bruit. HEART: Regular. S3 gallop is noted, II/ systolic ejection murmur. LUNGS: Fairly good air excursion. Decreased breath sounds at the bases. ABDOMEN: Soft, nontender. CONSULT REPORT [id number] TERESA HAAS EXTREMITIES: Pulses decreased, 1+ with no edema. IMPRESSION: Non-ST segment elevation myocardial infarction; renal failure, approaching dialysis. At this point in time, we will proceed with angiography as it stands high risk for dialysis at this point given ongoing intermittent episodes of pain benefits outweigh the risks at this point. Further recommendations based on the above. TRANSINT:[id number] Voice Confirmation ID: [id number] DOCUMENT ID: [id number] BRAD MORALES MD at 0858 CC: [id number] DICTATION DATE: 01/03/20 0853 MINES INSPECTOR: 01/03/20 1424 DIS IN 01/04/20 [facility] [address] [id number]
--- NOTE | 2020-01-05 08:58 | EC ---
PATIENT:TERESA HAAS DATE OF SERVICE: 01/02/20 SEX: M MEDICAL RECORD: [id number] DATE OF : 59 LOCATION:D.M2 D.211 AGE OF PATIENT: 64 ADMISSION DATE: 01/02/20 REFERRING PHYSICIAN: INTERPRETING PHYSICIAN: BRAD MORALES MD ECHOCARDIOGRAM REPORT ECHO CHARGES 4 ECHO COMPLETE Date: 01/03/20 CLINICAL DIAGNOSIS: AVR ECHOCARDIOGRAPHIC MEASUREMENTS (adult normal given) AC root (d.<3.7cm) 2.1 cm LV Septum d (<1.2 cm> 1.0 cm Valve Excursion 1.0 cm LV Septum (systole) 1.2 cm Left Atria (s.<4.0cm> 6.0 cm LVPW d(<1.2cm) 1.0 cm RV (d.<2.3cm) 4.1 cm LVPW (sytole) 1.1 cm LV diastole(<5.6CM) 7.9 cm MV E-F(>70mm/sec) cm LV systole 6.4 cm LVOT Diameter 1.7 cm MV exc.(>10mm) cm Est.ejection fraction (50-75%) % DOPPLER: LVIT cm/sec A 102 cm/sec E 120 cm/sec LA cm/sec RVSP 25.6 mmHg LVOT 86 cm/sec AOP1/2T m/s Asc. Ao 395 cm/sec RVOT 72 cm/sec RA cm/sec PA 74 cm/sec AV Gradient Peak 62.4 mmHg AV Mean 39.4 mmHg AV Area 0.5 cm MV Gradient Peak 8.5 mmHg MV Mean 5.7 mmHg MV Area cm COMMENTS: Creative Engagement Director: [employer] Core Measures Abstractor: 3 Dr. Carrero TAPE# PACS Pericardial Effusion N DATE OF SERVICE: Adequate 2D, color flow imaging, spectral Doppler, and M-Mode. LVH is present. LV internal dimension are dilated. LV is globally hypokinetic with reduced EF, estimated EF 25%. Mechanical prosthetic aortic valve is noted with elevated velocities, peak gradient of 60 mmHg. Left atrium is dilated at 6.0 cm. Mitral valve shows no prolapse. Moderate MR. Right-sided chambers are grossly normal. Mild TR. ECHOCARDIOGRAM REPORT [id number] TERESA HAAS TRANSINT:[id number] Voice Confirmation ID: [id number] DOCUMENT ID: [id number] BRAD MORALES MD at 0858 CC: [id number] DICTATION DATE: 01/04/20 1018 BUSINESS PROCESS EXPERT: 01/04/20 1402 DIS IN 01/04/20 [facility] [address] [id number]
== END 2020-01-04 22:03 | DRG 811 ==
LOC: D.ER 13:37 → D.M2 15:32
PROVIDERS: Family Medicine; Internal Medicine Interventional Cardiology; Internal Medicine Nephrology; ADMIT Family Medicine; ATTEND Family Medicine
PROC: 4A023N7 Measurement of Cardiac Sampling and Pressure, Left Heart, Percutaneous Approach (ICD-10-PCS; 2020-01-03)
PROC: B2111ZZ Fluoroscopy of Multiple Coronary Arteries using Low Osmolar Contrast (ICD-10-PCS; 2020-01-03)
PROC: 05HN33Z Insertion of Infusion Device into Left Internal Jugular Vein, Percutaneous Approach (ICD-10-PCS; principal; 2020-01-03 08:34)
PROC: 0BH17EZ Insertion of Endotracheal Airway into Trachea, Via Natural or Artificial Opening (ICD-10-PCS; 2020-01-04)
DX: D64.9 Anemia, unspecified (principal); I21.A1 Myocardial infarction type 2; I13.2 Hypertensive heart and chronic kidney disease with heart failure and with stage 5 chronic kidney disease, or end stage renal disease; N17.9 Acute kidney failure, unspecified; N18.5 Chronic kidney disease, stage 5; I42.9 Cardiomyopathy, unspecified; I42.8 Other cardiomyopathies; E78.5 Hyperlipidemia, unspecified; D63.1 Anemia in chronic kidney disease; Z79.01 Long term (current) use of anticoagulants; M48.061 Spinal stenosis, lumbar region without neurogenic claudication; E83.41 Hypermagnesemia; E87.5 Hyperkalemia; I73.9 Peripheral vascular disease, unspecified; I50.9 Heart failure, unspecified; I46.2 Cardiac arrest due to underlying cardiac condition; E11.22 Type 2 diabetes mellitus with diabetic chronic kidney disease